=== PATIENT | male | born 1930 | race Caucasian/White ===

== ENCOUNTER 2017-12-05 09:32 | Emergency (ER) | payer MEDICARE, OTHER ==
[2017-12-05 09:54] VITALS: BP 131/60
--- NOTE | 2017-12-05 10:39 | UC ---
Head Injury HPI - HPI Summary HPI Summary: Patient went for a walk yesterday with his . States it was very hot outside and when he went inside he felt dizzy and passed out. He fell into his 's bureau sustaining a skin tear to his right forearm, right knee and struck the right side of his head. He does report LOC for less than 10 seconds. He woke up and had no dizziness or headache or nausea. Not UTD tetanus. - History Of Current Complaint Chief Complaint: UCDizziness Stated Complaint: FELL LAC ON ARM AND BEHIND EAR Time Seen by Provider: 12/05/17 09:45 Hx Obtained From: Patient, Family/Tile Roofer - ARIADNE HOFFMAN Onset/Duration: Sudden Onset, Lasting Hours, Still Present Severity Currently: Mild Severity Initially: Mild Pain Intensity: 0 Pain Scale Used: 0-10 Numeric Aggravating Factor(s): Nothing Associated Signs And Symptoms: Positive: LOC Duration Unknown. Negative: Memory Loss, Seizure, Epistaxis, Dental Malocclusion, Neck Pain, Nausea, Vomiting - Allergies/Home Medications Allergies/Adverse Reactions: Allergies Allergy/AdvReac Type Severity Reaction Status Date / Time No Known Allergies Allergy Verified 12/05/17 09:54 Home Medications: Home Medications Enetacapene 1 tab PO TID 12/05/17 [History] Finasteride [Proscar] 1 tab PO DAILY 12/05/17 [History Confirmed 12/05/17] Mirabegron (NF) [Myrbetriq (NF)] 1 tab PO DAILY 12/05/17 [History Confirmed ] Multivit-Min/Iron/Folic Acid/K [Adults Multivitamin Caplet] 1 tab PO DAILY 12/05 [History Confirmed 12/05/17] Tamsulosin CAP* [Flomax CAP*] 1 tab PO DAILY 12/05/17 [History Confirmed ] PMH/Surg Hx/FS Hx/Imm Hx Cardiovascular History: Atrial Fibrillation Other GI/ History: BPH Other Neurological History: PARKINSONS DISEASE Cancer History: Prostate Cancer - Surgical History Surgical History: Yes Surgery Procedure, Year, and Place: BILAT KNEE REPLACEMENT , appendectomy, hernia repairs, cataract removal - Family History Known Family History: Positive: Unknown - Social History Alcohol Use: None Substance Use Type: None Smoking Status (MU): Former Smoker Type: Cigarettes Amount Used/How Often: one pack per week Length of Time of Smoking/Using Tobacco: 10 years Have You Smoked in the Last Year: No When Did the Patient Quit Smoking/Using Tobacco: 67 years ago - Immunization History Most Recent Influenza Vaccination: 02/2015 Most Recent Tetanus Shot: 2013 Most Recent Pneumonia Vaccination: 2013 Review of Systems Constitutional: Negative Skin: Other - ABRASIONS Respiratory: Negative Cardiovascular: Negative Gastrointestinal: Negative Musculoskeletal: Negative Neurological: Negative All Other Systems Reviewed And Are Negative: Yes Physical Exam Triage Information Reviewed: Yes Appearance: Well-Appearing, No Pain Distress, Well-Nourished Vital Signs: Initial Vital Signs Temp 99.4 F 12/05/17 09:50 Pulse 75 12/05/17 09:50 Resp 17 12/05/17 09:50 BP 131/60 12/05/17 09:50 Pulse Ox 97 12/05/17 09:50 Vital Signs Reviewed: Yes Eyes: Positive: Conjunctiva Clear ENT: Positive: Hearing grossly normal, Pharynx normal, TMs normal, Other - NO RACCOON EYES, NO BATTLES SIGN, NO FLUID FROM NOSE OR EARS Neck: Positive: Supple, Nontender Respiratory Exam: Normal Cardiovascular Exam: Normal Abdomen Description: Positive: Nontender, Soft Musculoskeletal: Positive: No Edema Neurological: Positive: Alert, Other: - CN II-XII GROSSLY INTACT BILATERALLY. 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 MOTOR SKILLS EVAL LIMITED DUE TO PT DEBILITY AND PARKINSONS Psychological: Positive: Age Appropriate Behavior Skin: Positive: Other - SKIN TEAR 2.5CM X 5.5CM RIGHT FOREARM. 1 CM ABRASION BEHIND RIGHT EAR. 2CM ABRASION RIGHT MEDIAL KNEE. Diagnostics - Radiology CT HEAD Xray Interpretation: No Acute Changes Radiology Interpretation Completed By: Radiologist - EKG Cardiac Rate: NL Cardiac Rhythm: Sinus: Normal - RBBB Ectopy: None ST Segment: Normal Head Injury Course/Dx - Differential Dx/Diagnosis Provider Diagnoses: 1. HEAD INJURY. 2. ABRASIONS Discharge - Sign-Out/Discharge Documenting (check all that apply): Discharge/Admit/Transfer - Discharge Plan Condition: Stable Disposition: HOME Patient Education Materials: Head Injury (ED), Skin Avulsion (ED), Abrasion (ED ), Skin Tear (ED) Referrals: Wai Elizabeth MD [Medical Doctor] - 1 Week Additional Instructions: CT HEAD TODAY UNREMARKABLE. GO TO THE ER WITHOUT FAIL IF YOU DEVELOP UNEQUAL PUPILS, VISUAL DISTURBANCE, GAIT INSTABILITY, SPEECH DIFFICULTY, NAUSEA/VOMITING, WORSENING HEADACHE, DIZZINESS, CONFUSION, WEAKNESS OR ANY OTHER CONCERNING SYMPTOMS. APPLY THIN LAYER ANTIBIOTIC OINTMENT ON SKIN TEAR ON RIGHT FOREARM THEN COVER WITH NON-STICK BANDAGE. CHANGE BANDAGE DAILY AND NEEDED IF IT BECOMES SOILED OR WET. SEEK FOLLOW-UP IF YOU DEVELOP SPREADING REDNESS OF THE SKIN, PURULENT DRAINAGE, FEVER, INCREASED PAIN OR ANY OTHER CONCERNING SYMPTOMS. TETANUS IMMUNIZATION GIVEN (TDAP): You have been given an immunization against tetanus. Please record this in your records. In general, a booster is needed only once every 10 years. The tetanus shot protects against tetanus or "lockjaw," which is a complication of certain wound infections (the tetanus shot cannot protect against the actual infection). The immunization site may become warm and red due to local reaction. If this occurs, apply warm compresses and take aspirin or ibuprofen to reduce inflammation and discomfort. Return for evaluation if the reaction becomes severe. - Billing Disposition and Condition Condition: STABLE Disposition: Home
[2017-12-05] MEDS ORDERED: Tetan/Diph/Pertus SYR(Tdap)* 0.5 ML SYR(BOOSTRIX) use SYR IM ONE (11:06)
--- NOTE | 2017-12-05 11:19 | RAD ---
HISTORY: head injury w/ LOC COMPARISONS: February 27, 2016 TECHNIQUE: Multiple contiguous axial CT scans were obtained of the head without intravenous contrast. FINDINGS: HEMORRHAGE/INFARCT: There is no hemorrhage or acute infarct. MASSES/SHIFT: There is no mass or shift. EXTRA-AXIAL SPACES: There are no extra-axial fluid collections. SULCI AND VENTRICLES: The sulci and ventricles are normal in size and position for the patient's stated age. CEREBRUM: There is hypoattenuation of the periventricular and subcortical white matter. BRAINSTEM: There are no focal parenchymal abnormalities. CEREBELLUM: There are no focal parenchymal abnormalities. VESSELS: There is calcification of the cavernous segments of the internal carotid arteries bilaterally. PARANASAL SINUSES: The paranasal sinuses are clear. ORBITS: The orbits are unremarkable. BONES AND SOFT TISSUE: No bone or soft tissue abnormalities are noted. OTHER: None IMPRESSION: NO ACUTE INTRACRANIAL PATHOLOGY. CHRONIC SMALL VESSEL ISCHEMIC CHANGE
== END 2017-12-05 12:07 | disposition home or self-care (01) ==
LOC: UCEAST 09:32
DX: S09.90XA Unspecified injury of head, initial encounter (principal); W08.XXXA Fall from other furniture, initial encounter; Y92.019 Unspecified place in single-family (private) house as the place of occurrence of the external cause; S80.211A Abrasion, right knee, initial encounter; S00.411A Abrasion of right ear, initial encounter; I48.91 Unspecified atrial fibrillation; N40.0 Benign prostatic hyperplasia without lower urinary tract symptoms; G20 Parkinson's disease; C61 Malignant neoplasm of prostate; Z87.891 Personal history of nicotine dependence
CPT/HCPCS: 70450; 90715; 93005; 99212; G0463

== ENCOUNTER 2018-08-07 11:26 | Emergency (ER) | payer MEDICARE, OTHER ==
--- OUTSIDE RECORDS SUMMARY | 2018-08-07 11:33 | XMS REPORT | Continuity of Care Document ---
:1928 External Reference #:[id number] Author Name Genia mota Care Team Providers Name Role Phone Wai Elizabeth MD Primary Care Physician Unavailable Payers Type Date Identification Numbers Payment Provider Subscriber Effective: 1993 Policy Number: [id number] Medicare Curtis Hall PayID: [id number] [address] [place] [address] Effective: 1993 Policy Number: [id number] [facility] Curtis Hall PayID: [id number] [address] [place] [address] Advance Directives Description No Information Available Problems Date Description Provider Status Onset: 03/14/2012 Rheumatoid arthritis Jerome Palencia M.D. Active Onset: 03/14/2012 Medications [facility] (Current) Use Jerome Palencia M.D. 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 Active Onset: 03/18/2015 Full thickness rotator cuff tear Adrian Bajwa M.D. Active Onset: 06/09/2015 Taking medication CONCHITA Retana Active Onset: 07/09/2017 Arthroplasty of knee Richard Garcia M.D. 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 Family History Description No Information Available Social History Type Date Description Comments Sex Unknown Hand Dominance Right-handed Tobacco Use Start: Unknown End: Former Cigarette Smoker Unknown Smoking Status Reviewed: 07/17/18 Former Cigarette Smoker ETOH Use Drinks 3 Alcoholic Beverages Per Week Tobacco Use Start: Unknown End: Patient is a former smoker Quit 1965 Unknown Recreational Drug Use Denies Drug Use Allergies, Adverse Reactions, Alerts Description No Known Drug Allergies Medications Medication Date Status Form Strength Qnty SIG Indications Ordering Provider Gait/Transfer 04/24 Active Misc 1 for use G2 Loy Fong with walks Jagdeep Connelly transfer Methotrexate 11/26 Active Tablets 2.5mg 90tab take 6 M06.9 s capsules/lupe Mcmullen M.D. ablets by mouth once weekly for rheumatoid arthritis Folic Acid 11/26 Active Tablets 1mg 90tab take one M06.9 s capsule/selene Mcmullen M.D. blet daily by mouth for rheumatoid arthritis Sinemet 11/18 Active Tablets 25-100mg 112ta 2 tabs by Juan Miguel bs mouth four Fuad Churchill times a day, at 8 in the morning, 12 in the morning, 4 at night, & 8 at night Amoxicillin 10/28 Active Capsules 500mg 4caps 4 tablets Dirk Jose 1 hour M.D. before dental work Flomax Active Capsules 0.4mg 30cap 1 po qd Unknown / s Ibuprofen Active Capsules 200mg as needed Unknown Myrbetriq Active Tablets 25mg 2 by mouth ER 24HR every day Oxybutynin 07/18 Hx Tablets 10mg 90tab 1 po qhs Loy Fong Chloride ER 24HR s Kalen ConnellyDSherif 10/24 Comtan 04/26 Hx Tablets 200mg 270ta 1 by mouth G2 Loy Fong bs three Maricel, - times a M.D. 08/15 day at 7 11, and 3 Voltaren 09/07 Hx Gel 1% 1tube apply to M75.121 Zsofi s affected [facility] - area twice 10/24 a day, needed Naproxen 06/14 Hx Tablets 250mg 60tab 1 tablet M75.121 s by mouth Fuad Palencia - twice a 11/23 day needed pain, with foods (not taking, ineffectiv e) Lidocaine 06/14 Hx Cream 4% 30gm apply thin M75.121 film to Fuad Palencia - the skin 3 09/07 daily as needed (not taking, ineffectiv e) Naproxen Sodium 06/09 Hx Tablets 220mg 60tab 1 tab by M75.121 Zsofi s mouth CONCHITA Quiñones - twice a Voltaren 06/09 Hx Gel 1% 100gm apply to M75.121 affected CONCHITA Quiñones - area twice 06/14 a day, needed Percocet 01/13 Hx Tablets 5-325mg 40tab 1-2 by 715.11 Adrian Bajwa s mouth LindsayDSherif - every 4 to 03/16 6 hours needed pain Carbidopa-Levodo 08/21 Hx Tablets 25-100mg 30tab take 1 by Loy de la torre ER s mouth at Maricel, - bedtime M.D. 12/16 Fludrocortisone 02/11 Hx Tablets 0.1mg 30tab 1 by mouth Loy Mcdaniel /2013 s every day Maricel - M.DSherif 02/11 Fludrocortisone 02/11 Hx Tablets 0.1mg 90tab 1 by mouth Loy Mcdaniel /2013 s every day Maricel - M.DSherif 02/11 Fludrocortisone 02/11 Hx Tablets 0.1mg 180ta 2 tabs by Gladis Mcdaniel bs mouth Surinder, COSMETIC MANAGER - daily 06/25 Methotrexate 10/01 Hx Tablets 2.5mg 6tabs 6 tbs by M05.79 Zsofi mouth CONCHITA Quiñones - every week 04/03 Carbidopa/Levodo 01/07 Hx Tablets 25-100mg 270ta 1 po tid Other britt /2012 bs Ordering - Provider 01/07 Methotrexate 01/07 Hx Tablets 2.5mg 60tab 5 tbs po ofi s every week CONCHITA Quiñones - 10/01 Detrol LA 09/24 Hx Caps ER 2mg 30cap 1 po qd 24HR s Fuad Palencia - 09/24 Prednisone 05/12 Hx Tablets 5mg 70tab 4 qd x 1 s week, 3 qd Fuad Palencia - x 1 week, 09/24 2 qd x week, 1 qd x 1 week Methotrexate 05/12 Hx Tablets 2.5mg 12tab take 3 s tablets Fuad Palencia - Per Week 01/07 Levodopa 04/25 Hx Powder unknown to pt Fuad Palencia - 04/23 Folic Acid 09/05 Hx Tablets 1mg 90tab take 1 Z79.899 Zsofi s tablet by CONCHITA Quiñones - mouth once 11/26 daily /2017 Sinemet Hx Tablets 25-100mg 720ta 2 tabs Loy S. /0000 bs four times Maricel, - a day M.DSherif 11/18 Simvastatin Hx Tablets 10mg 90tab 1/2 po qhs Unknown /0000 s - 04/25 Terazosin HCL Hx Capsules 1mg 270ca take one Unknown /0000 ps capsule by - mouth 09/24 morning and take two capsules by mouth at bedtime Finasteride Hx Tablets 5mg 90tab 1 tab po Unknown /0000 s daily - 02/05 Multi Vitamin Hx Tablets 30tab 1 po qd Unknown /0000 s - 06/25 Oxybutynin Hx Tablets 5mg 90tab 1/2 tid Unknown Chloride /0000 ER 24HR s - 09/24 Fish Oil Hx Capsules 1000mg 1 po qd Unknown /0000 DR - 02/23 Aspirin 00/00 Hx Tablets 325mg 100ta 1 po qd Unknown /0000 DR canales prn - 04/23 Tamsulosin HCL Hx Capsules 0.4mg 30.0c 1 po qd Unknown /0000 aps - 01/29 Aspirin Ec Hx Tablets 325mg 100ta 1 po qd Unknown /0000 DR canales - 10/25 Floranex Hx Packet Unknown /0000 - 04/02 Oxybutynin Hx Tablets 5mg take 1 Unknown Chloride ER /0000 ER 24HR tablet by - mouth once 07/18 Simvastatin Hx Tablets 10mg take 1/2 Unknown /0000 tablet by - mouth at 08/14 bedtime Multivitamin Hx Tablets 1 by mouth Unknown Adults /0000 every day - 02/05 Entacapone Hx Tablets 200mg 270ta 1 tab by Loy S. /0000 bs mouth Zarephath, - three M.D. 12/17 times day Minocycline HCL Hx Capsules 100mg take one M06.9 Unknown /0000 capsule by - mouth two 11/26 times day Entacapone Hx Tablets 200mg take 1 Unknown /0000 tablet by - mouth 02/05 times a day(vito wray not taking) Medications Administered in Office Medication Date Status Form Strength Qnty SIG Indications Ordering Provider Depomedrol Administered Injection Dirk Jose, 40MG 018 M.D. Depomedrol Administered Injection Dirk Jose, 40MG 018 M.D. Depomedrol Administered Injection Dirk Jose, 40MG 016 M.D. Depomedrol Administered Injection Adrian 80MG 015 Svetlana Bajwa.Jackie Depomedrol Administered Injection Adrian 80MG 015 Fuad Bajwa Depomedrol Administered Injection Dirk Jose, 80MG 015 M.D. Depomedrol Administered Injection Jackie 80MG 011 GENNA Cano Depomedrol Administered Injection Dirk Jose, 40MG 010 M.D. Immunizations Description No Information Available Vital Signs Date Vital Result Comment 07/17/2018 1:48pm Height 70 inches 5'10" Weight 148.00 lb Heart Rate 78 /min BP Systolic 102 mmHg BP Diastolic 68 mmHg BMI (Body Mass Index) 21.2 kg/m2 04/24/2018 3:23pm Height 70 inches 5'10" Weight 148.00 lb Heart Rate 72 /min BP Systolic Sitting 104 mmHg BP Diastolic Sitting 64 mmHg Respiratory Rate 16 /min BMI (Body Mass Index) 21.2 kg/m2 02/06/2018 2:02pm Height 70 inches 5'10" Weight 143.00 lb Heart Rate 68 /min BP Systolic 100 mmHg Stand 100/62 BP Diastolic 62 mmHg Stand 100/62 Respiratory Rate 20 /min BMI (Body Mass Index) 20.5 kg/m2 01/08/2018 10:52am Height 70 inches 5'10" Weight 147.00 lb Heart Rate 62 /min BP Systolic 92 mmHg BP Diastolic 52 mmHg BP Systolic Standing 86 mmHg BP Diastolic Standing 48 mmHg BMI (Body Mass Index) 21.1 kg/m2 12/27/2017 3:50pm Height 70 inches 5'10" Heart Rate 68 /min BP Systolic Sitting 124 mmHg BP Diastolic Sitting 76 mmHg BP Systolic Standing 110 mmHg BP Diastolic Standing 64 mmHg Respiratory Rate 14 /min Pain Level 4 12/14/2017 8:39am Height 70 inches 5'10" Weight 145.00 lb Heart Rate 72 /min BP Systolic Sitting 122 mmHg BP Diastolic Sitting 72 mmHg Respiratory Rate 16 /min BMI (Body Mass Index) 20.8 kg/m2 11/26/2017 11:05am Weight 152.50 lb Heart Rate 80 /min BP Systolic Sitting 106 mmHg BP Diastolic Sitting 64 mmHg Respiratory Rate 14 /min Pain Level 8 10/17/2017 9:49am Heart Rate 64 /min BP Systolic 110 mmHg BP Diastolic 60 mmHg Respiratory Rate 16 /min Body Temperature 96.7 F Pain Level 8 intermittent 08/15/2017 4:01pm Height 70 inches 5'10" Weight 142.00 lb Heart Rate 74 /min BP Systolic Sitting 112 mmHg BP Diastolic Sitting 72 mmHg Respiratory Rate 17 /min BMI (Body Mass Index) 20.4 kg/m2 07/23/2017 9:37am Height 70 inches 5'10" Weight 145.00 lb Heart Rate 86 /min Respiratory Rate 16 /min Body Temperature 96.5 F Pain Level 8 BMI (Body Mass Index) 20.8 kg/m2 07/09/2017 1:45pm Height 70 inches 5'10" Weight 145.00 lb BP Systolic 112 mmHg BP Diastolic 70 mmHg Respiratory Rate 20 /min Body Temperature 97.5 F Pain Level 7 BMI (Body Mass Index) 20.8 kg/m2 04/04/2017 9:40am Height 70 inches 5'10" Weight 145.00 lb Heart Rate 68 /min BP Systolic 100 mmHg BP Diastolic 60 mmHg Respiratory Rate 14 /min BMI (Body Mass Index) 20.8 kg/m2 11/14/2016 4:48pm Height 70 inches 5'10" Weight 145.00 lb Heart Rate 66 /min BP Systolic Sitting 112 mmHg BP Diastolic Sitting 70 mmHg Respiratory Rate 17 /min BMI (Body Mass Index) 20.8 kg/m2 07/18/2016 8:50am Height 70 inches 5'10" Weight 148.00 lb Heart Rate 64 /min BP Systolic Sitting 110 mmHg BP Diastolic Sitting 70 mmHg Respiratory Rate 17 /min BMI (Body Mass Index) 21.2 kg/m2 05/11/2016 1:12pm Height 70 inches 5'10" Weight 155.00 lb Heart Rate 68 /min Respiratory Rate 16 /min Pain Level 8 BMI (Body Mass Index) 22.2 kg/m2 04/26/2016 2:34pm Height 70 inches 5'10" Weight 155.00 lb Heart Rate 68 /min BP Systolic Sitting 130 mmHg BP Diastolic Sitting 68 mmHg BMI (Body Mass Index) 22.2 kg/m2 03/29/2016 9:32am Height 70 inches 5'10" Weight 165.00 lb Pain Level 3 5 BMI (Body Mass Index) 23.7 kg/m2 02/02/2016 10:11am Height 70 inches 5'10" Weight 165.00 lb Heart Rate 60 /min Respiratory Rate 16 /min Body Temperature 97.8 F Pain Level 0 BMI (Body Mass Index) 23.7 kg/m2 01/18/2016 1:39pm Height 70 inches 5'10" Heart Rate 80 /min BP Systolic Sitting 100 mmHg BP Diastolic Sitting 66 mmHg Respiratory Rate 16 /min 10/27/2015 11:33am Height 70 inches 5'10" Weight 166.00 lb Heart Rate 72 /min BP Systolic Sitting 104 mmHg BP Diastolic Sitting 62 mmHg Respiratory Rate 18 /min BMI (Body Mass Index) 23.8 kg/m2 09/29/2015 9:37am Height 70 inches 5'10" Weight 170.00 lb Heart Rate 75 /min BP Systolic 103 mmHg BP Diastolic 62 mmHg Pain Level 7 BMI (Body Mass Index) 24.4 kg/m2 09/08/2015 11:09am Height 70 inches 5'10" Heart Rate 76 /min BP Systolic Sitting 112 mmHg BP Diastolic Sitting 74 mmHg Respiratory Rate 14 /min Pain Level 4 06/09/2015 12:42pm Height 70 inches 5'10" Weight 163.50 lb Heart Rate 72 /min BP Systolic Sitting 160 mmHg BP Diastolic Sitting 90 mmHg Respiratory Rate 14 /min Pain Level 9 BMI (Body Mass Index) 23.5 kg/m2 06/02/2015 10:37am Height 70 inches 5'10" Weight 163.00 lb Heart Rate 64 /min BP Systolic Sitting 110 mmHg BP Diastolic Sitting 68 mmHg Respiratory Rate 16 /min BMI (Body Mass Index) 23.4 kg/m2 03/18/2015 9:15am Height 70 inches 5'10" Weight 170.00 lb Pain Level 7 BMI (Body Mass Index) 24.4 kg/m2 03/17/2015 10:27am Height 70 inches 5'10" Weight 153.00 lb With shoes on- Heart Rate 68 /min BP Systolic Sitting 106 mmHg BP Diastolic Sitting 68 mmHg Respiratory Rate 16 /min BMI (Body Mass Index) 22.0 kg/m2 02/25/2015 10:32am Height 70 inches 5'10" Weight 170.00 lb Pain Level 8 BMI (Body Mass Index) 24.4 kg/m2 02/11/2015 8:33am Height 70 inches 5'10" Weight 170.00 lb Pain Level 9 BMI (Body Mass Index) 24.4 kg/m2 01/21/2015 8:30am Height 70 inches 5'10" Weight 170.00 lb Pain Level 9 BMI (Body Mass Index) 24.4 kg/m2 01/13/2015 12:54pm Height 70 inches 5'10" Weight 170.00 lb Pain Level 9 BMI (Body Mass Index) 24.4 kg/m2 12/28/2014 10:59am Height 70 inches 5'10" Weight 170.00 lb Heart Rate 63 /min BP Systolic 131 mmHg BP Diastolic 82 mmHg BMI (Body Mass Index) 24.4 kg/m2 12/22/2014 2:07pm Height 68 inches 5'8" Heart Rate 60 /min BP Systolic Sitting 108 mmHg BP Diastolic Sitting 64 mmHg Respiratory Rate 16 /min 11/25/2014 10:17am Height 68 inches 5'8" Heart Rate 64 /min BP Systolic Sitting 110 mmHg BP Diastolic Sitting 68 mmHg Respiratory Rate 16 /min 11/11/2014 8:31am Height 68 inches 5'8" Heart Rate 68 /min BP Systolic Sitting 124 mmHg BP Diastolic Sitting 72 mmHg Respiratory Rate 16 /min 08/21/2014 10:40am Heart Rate 64 /min BP Systolic Sitting 116 mmHg BP Diastolic Sitting 66 mmHg Respiratory Rate 16 /min 05/13/2014 8:42am BP Systolic 90 mmHg After standing 1 minut BP Diastolic 62 mmHg After standing 1 minut BP Systolic Sitting 106 mmHg BP Diastolic Sitting 60 mmHg BP Systolic Standing 96 mmHg BP Diastolic Standing 60 mmHg BP Systolic Lying Down 110 mmHg BP Diastolic Lying Down 62 mmHg 04/02/2014 9:34am Height 68 inches 5'8" Weight 175.00 lb Heart Rate 84 /min BP Systolic Sitting 114 mmHg BP Diastolic Sitting 68 mmHg Pain Level 0 BMI (Body Mass Index) 26.6 kg/m2 03/17/2014 9:34am Height 68 inches 5'8" Weight 172.00 lb Heart Rate 72 /min BP Systolic Sitting 128 mmHg BP Diastolic Sitting 70 mmHg Respiratory Rate 16 /min BMI (Body Mass Index) 26.1 kg/m2 02/11/2014 8:37am Height 68 inches 5'8" Weight 170.00 lb Heart Rate 72 /min BP Systolic Sitting 100 mmHg BP Diastolic Sitting 60 mmHg Respiratory Rate 20 /min BMI (Body Mass Index) 25.8 kg/m2 12/24/2013 2:07pm Height 68 inches 5'8" Weight 171.25 lb Heart Rate 77 /min BP Systolic Sitting 116 mmHg BP Diastolic Sitting 70 mmHg Pain Level 5 BMI (Body Mass Index) 26.0 kg/m2 10/01/2013 1:51pm Height 68 inches 5'8" Weight 178.75 lb Heart Rate 74 /min BP Systolic Sitting 102 mmHg BP Diastolic Sitting 78 mmHg BMI (Body Mass Index) 27.2 kg/m2 07/25/2013 10:54am Heart Rate 70 /min BP Systolic Sitting 120 mmHg BP Diastolic Sitting 80 mmHg Respiratory Rate 16 /min 06/24/2013 9:30am Height 67 inches 5'7" Weight 177.75 lb Heart Rate 78 /min BP Systolic Sitting 110 mmHg BP Diastolic Sitting 74 mmHg BMI (Body Mass Index) 27.8 kg/m2 04/01/2013 9:31am Weight 174.00 lb Heart Rate 72 /min BP Systolic Sitting 110 mmHg BP Diastolic Sitting 60 mmHg 01/29/2013 2:43pm Heart Rate 76 /min BP Systolic 100 mmHg BP Diastolic 64 mmHg Respiratory Rate 12 /min 01/07/2013 9:01am Height 68 inches 5'8" Weight 162.00 lb Heart Rate 77 /min BP Systolic Sitting 124 mmHg BP Diastolic Sitting 74 mmHg BMI (Body Mass Index) 24.6 kg/m2 10/25/2012 2:44pm Height 68 inches 5'8" Weight 165.00 lb Heart Rate 71 /min BP Systolic Sitting 128 mmHg BP Diastolic Sitting 62 mmHg BMI (Body Mass Index) 25.1 kg/m2 06/13/2012 8:41am Height 68 inches 5'8" Heart Rate 72 /min BP Systolic Sitting 118 mmHg BP Diastolic Sitting 62 mmHg 04/23/2012 2:36pm Weight 170.00 lb Heart Rate 60 /min BP Systolic 136 mmHg BP Diastolic 78 mmHg Respiratory Rate 14 /min 03/14/2012 8:18am Height 71 inches 5'11" Weight 165.00 lb Heart Rate 68 /min BP Systolic Sitting 121 mmHg BP Diastolic Sitting 66 mmHg BMI (Body Mass Index) 23.0 kg/m2 12/11/2011 8:53am Height 71 inches 5'11" Weight 180.00 lb Heart Rate 70 /min BP Systolic Sitting 121 mmHg BP Diastolic Sitting 68 mmHg BMI (Body Mass Index) 25.1 kg/m2 09/25/2011 9:06am Height 71 inches 5'11" Weight 181.00 lb Heart Rate 76 /min BP Systolic Sitting 118 mmHg BP Diastolic Sitting 69 mmHg BMI (Body Mass Index) 25.2 kg/m2 05/12/2011 10:12am Height 71 inches 5'11" Weight 182.00 lb Heart Rate 68 /min BP Systolic Sitting 110 mmHg BP Diastolic Sitting 70 mmHg BMI (Body Mass Index) 25.4 kg/m2 04/25/2011 9:19am Height 71 inches 5'11" Weight 181.00 lb Heart Rate 66 /min BP Systolic Sitting 110 mmHg BP Diastolic Sitting 70 mmHg BMI (Body Mass Index) 25.2 kg/m2 01/17/2011 4:05pm Height 71 inches 5'11" Weight 175.00 lb Heart Rate 72 /min BP Systolic 100 mmHg BP Diastolic 60 mmHg BMI (Body Mass Index) 24.4 kg/m2 Results Test Date Facility Test Result H/L Range Note Laboratory test 12/27/2017 [facility] C Reactive 12.99 mg/L High <8.[address] [place] [address] [phone] Erythrocyte Sed Rate 22 mm/Hr N 0-40 CBC Auto Diff 12/27/2017 [facility] White Blood 5.6 10^3/uL N 3.5-10.[address] [place] [address] [phone] Red Blood Count 4.12 10^6/uL N 4.00-5.40 Hemoglobin 13.5 g/dL Low 14.0-18.0 Hematocrit 40 % Low 42-52 Mean Corpuscular Volume 97 fL High 80-94 Mean Corpuscular Hemoglobin 33 pg High 27-31 Mean Corpuscular HGB Conc 34 g/dL N 31-36 Red Cell Distribution Width 14 % N 10.5-15 Platelet Count 224 10^3/uL N 150-450 Mean Platelet Volume 6.8 um3 Low 7.4-10.4 Abs Neutrophils 3.0 10^3/uL N 1.5-7.7 Abs Lymphocytes 2.0 10^3/uL N 1.0-4.8 Abs Monocytes 0.4 10^3/uL N 0-0.8 Abs Eosinophils 0.2 10^3/uL N 0-0.6 Abs Basophils 0 10^3/uL N 0-0.2 Abs Nucleated RBC 0 10^3/uL Granulocyte % 53.6 % N 38-83 Lymphocyte % 35.3 % N 25-47 Monocyte % 7.6 % High 0-7 Eosinophil % 2.9 % N 0-6 Basophil % 0.6 % N 0-2 Nucleated Red Blood Cells % 0 Comp Metabolic Panel 12/27/2017 [facility] Sodium 140 mmol/L N 135-[address] [place] [address] [phone] Potassium 4.3 mmol/L N 3.5-5.0 Chloride 107 mmol/L N 101-111 Co2 Carbon Dioxide 26 mmol/L N 22-32 Anion Gap 7 mmol/L N 2-11 Glucose 102 mg/dL High 70-100 Blood Urea Nitrogen 19 mg/dL N 6-24 Creatinine 0.96 mg/dL N 0.67-1.17 BUN/Creatinine Ratio 19.8 N 8-20 Calcium 9.1 mg/dL N 8.6-10.3 Total Protein 6.3 g/dL Low 6.4-8.9 Albumin 3.6 g/dL N 3.2-5.2 Globulin 2.7 g/dL N 2-4 Albumin/Globulin Ratio 1.3 N 1-3 Total Bilirubin 0.50 mg/dL N 0.2-1.0 Alkaline Phosphatase 69 U/L N 34-104 Alt < 3 U/L Low 7-52 Ast 12 U/L Low 13-39 Egfr Non- 73.8 >60 Egfr 89.2 >60 1 Connective Tissue 11/26/2017 [facility] Anti-Nuclear Antibody 0.5 U [address] [place] [address] [phone] Cyclic Citrullinated Peptide >250.0 U Abnormal 3 Interpretation See Comment 4 Laboratory test 11/26/2017 [facility] Rheumatoid 606 IU/mL High <15 [address] [place] [address] [phone] Erythrocyte Sed Rate 17 mm/Hr N 0-40 6 C Reactive Protein 15.70 mg/L High < 5.00 7 Vitamin D Total 25(Oh) 23.7 ng/mL N 20-50 8 CBC Auto Diff 11/26/2017 [facility] White Blood 7.2 10^3/uL N 3.5-10.[address] [place] [address] [phone] Red Blood Count 4.59 10^6/uL N 4.0-5.4 Hemoglobin 15.0 g/dL N 14.0-18.0 Hematocrit 44 % N 42-52 Mean Corpuscular Volume 96 fL High 80-94 Mean Corpuscular Hemoglobin 33 pg High 27-31 Mean Corpuscular HGB Conc 34 g/dL N 31-36 Red Cell Distribution Width 13 % N 10.5-15 Platelet Count 215 10^3/uL N 150-450 Mean Platelet Volume 7.4 um3 N 7.4-10.4 Abs Neutrophils 4.9 10^3/uL N 1.5-7.7 Abs Lymphocytes 1.7 10^3/uL N 1.0-4.8 Abs Monocytes 0.5 10^3/uL N 0-0.8 Abs Eosinophils 0 10^3/uL N 0-0.6 Abs Basophils 0 10^3/uL N 0-0.2 Abs Nucleated RBC 0 10^3/uL Granulocyte % 68.5 % N 38-83 Lymphocyte % 23.8 % Low 25-47 Monocyte % 6.8 % N 0-7 Eosinophil % 0.6 % N 0-6 Basophil % 0.3 % N 0-2 Nucleated Red Blood Cells % 0 Comp Metabolic Panel 11/26/2017 [facility] Sodium 138 mmol/L Low 139-145 [address] [place] [address] [phone] Potassium 4.7 mmol/L N 3.5-5.0 Chloride 104 mmol/L N 101-111 Co2 Carbon Dioxide 27 mmol/L N 22-32 Anion Gap 7 mmol/L N 2-11 Glucose 87 mg/dL N 70-100 Blood Urea Nitrogen 22 mg/dL N 6-24 Creatinine 0.96 mg/dL N 0.67-1.17 BUN/Creatinine Ratio 22.9 High 8-20 Calcium 9.0 mg/dL N 8.6-10.3 Total Protein 6.4 g/dL N 6.4-8.9 Albumin 3.6 g/dL N 3.2-5.2 Globulin 2.8 g/dL N 2-4 Albumin/Globulin Ratio 1.3 N 1-3 Total Bilirubin 0.70 mg/dL N 0.2-1.0 Alkaline Phosphatase 82 U/L N 34-104 Alt < 3 U/L Low 7-52 Ast 15 U/L N 13-39 Egfr Non- 73.8 >60 Egfr 94.8 >60 9 Urinalysis Profile 04/13/2016 [facility] Urine Color Yellow N [address] [place] [address] [phone] Urine Appearance Clear N Urine Specific [place] 1.018 N 1.010-1.030 Urine pH 5.0 N 5-9 Urine Urobilinogen Negative N Negative Urine Ketones Trace Abnormal Negative Urine Protein Negative N Negative Urine Leukocytes Negative N Negative Urine Blood Negative N Negative Urine Nitrite Negative N Negative Urine Bilirubin Negative N Negative Urine Glucose Negative N Negative Comp Metabolic Panel 04/13/2016 [facility] Sodium 138 mmol/L N 133-145 [address] [place] [address] [phone] Potassium 4.8 mmol/L N 3.5-5.0 Chloride 105 mmol/L N 101-111 Co2 Carbon Dioxide 26 mmol/L N 22-32 Anion Gap 7 mmol/L N 2-11 Glucose 97 mg/dL N 70-100 Blood Urea Nitrogen 24 mg/dL N 6-24 Creatinine 0.92 mg/dL N 0.67-1.17 BUN/Creatinine Ratio 26.1 High 8-20 Calcium 9.4 mg/dL N 8.6-10.3 Total Protein 6.8 g/dL N 6.4-8.9 Albumin 4.0 g/dL N 3.2-5.2 Globulin 2.8 g/dL N 2-4 Albumin/Globulin Ratio 1.4 N 1-3 Total Bilirubin 0.60 mg/dL N 0.2-1.0 Alkaline Phosphatase 73 U/L N 34-104 Alt 3 U/L Low 7-52 Ast 14 U/L N 13-39 Egfr Non- 77.8 N >60 Egfr 100.1 N >60 10 CBC Auto Diff 04/13/2016 [facility] White Blood 6.2 10^3/uL N 3.5-10.[address] [place] [address] [phone] Red Blood Count 4.55 10^6/uL N 4.0-5.4 Hemoglobin 14.2 g/dL N 14.0-18.0 Hematocrit 43 % N 42-52 Mean Corpuscular Volume 94 fL N 80-94 Mean Corpuscular Hemoglobin 31 pg N 27-31 Mean Corpuscular HGB Conc 33 g/dL N 31-36 Red Cell Distribution Width 15 % N 10.5-15 Platelet Count 206 10^3/uL N 150-450 Mean Platelet Volume 8 um3 N 7.4-10.4 Abs Neutrophils 3.7 10^3/uL N 1.5-7.7 Abs Lymphocytes 1.9 10^3/uL N 1.0-4.8 Abs Monocytes 0.5 10^3/uL N 0-0.8 Abs Eosinophils 0.1 10^3/uL N 0-0.6 Abs Basophils 0.1 10^3/uL N 0-0.2 Abs Nucleated RBC 0 10^3/uL N Granulocyte % 59.5 % N 38-83 Lymphocyte % 30.1 % N 25-47 Monocyte % 7.5 % N 1-9 Eosinophil % 1.8 % N 0-6 Basophil % 1.1 % N 0-2 Nucleated Red Blood Cells % 0 N Urinalysis Profile 11/26/2015 [facility] Urine Color Yellow N [address] [place] [address] [phone] Urine Appearance Clear N Urine Specific [place] 1.024 N 1.010-1.030 Urine pH 5.0 N 5-9 Urine Urobilinogen Negative N Negative Urine Ketones Trace Abnormal Negative Urine Protein Negative N Negative Urine Leukocytes Negative N Negative Urine Blood 1+ Abnormal Negative * * Abnormal Negative 11 Urine Nitrite Negative N Negative Urine Bilirubin Negative N Negative Urine Glucose Negative N Negative Urine White Blood Cell Trace(0-5/hpf) N Absent Urine Red Blood Cell 3+(>10/hpf) Abnormal Absent Urine Bacteria Absent N Absent CBC Auto Diff 09/06/2015 [facility] White Blood 6.8 10^3/uL N 3.5-10.[address] [place] [address] [phone] Red Blood Count 4.19 10^6/uL N 4.0-5.4 Hemoglobin 14.3 g/dL N 14.0-18.0 Hematocrit 43 % N 42-52 Mean Corpuscular Volume 102 fL High 80-94 Mean Corpuscular Hemoglobin 34 pg High 27-31 Mean Corpuscular HGB Conc 34 g/dL N 31-36 Red Cell Distribution Width 15 % N 10.5-15 Platelet Count 193 10^3/uL N 150-450 Mean Platelet Volume 8 um3 N 7.4-10.4 Abs Neutrophils 4.5 10^3/uL N 1.5-7.7 Abs Lymphocytes 1.8 10^3/uL N 1.0-4.8 Abs Monocytes 0.4 10^3/uL N 0-0.8 Abs Eosinophils 0.1 10^3/uL N 0-0.6 Abs Basophils 0 10^3/uL N 0-0.2 Abs Nucleated RBC 0 10^3/uL N Granulocyte % 66.0 % N 38-83 Lymphocyte % 25.7 % N 25-47 Monocyte % 6.5 % N 1-9 Eosinophil % 1.2 % N 0-6 Basophil % 0.6 % N 0-2 Nucleated Red Blood Cells % 0 N Laboratory test 09/06/2015 [facility] C Reactive 1.66 mg/L N < 5.00 [address] [place] [address] [phone] Erythrocyte Sed Rate 11 mm/Hr N 0-40 13 Comp Metabolic Panel 09/06/2015 [facility] Sodium 137 mmol/L N 133-[address] [place] [address] [phone] Potassium 4.9 mmol/L N 3.5-5.0 Chloride 102 mmol/L N 101-111 Co2 Carbon Dioxide 29 mmol/L N 22-32 Anion Gap 6 mmol/L N 2-11 Glucose 88 mg/dL N 70-100 Blood Urea Nitrogen 22 mg/dL N 6-24 Creatinine 1.15 mg/dL N 0.67-1.17 BUN/Creatinine Ratio 19.1 N 8-20 Calcium 9.4 mg/dL N 8.6-10.3 Total Protein 6.5 g/dL N 6.4-8.9 Albumin 4.1 g/dL N 3.2-5.2 Globulin 2.4 g/dL N 2-4 Albumin/Globulin Ratio 1.7 N 1-3 Total Bilirubin 0.80 mg/dL N 0.2-1.0 Alkaline Phosphatase 71 U/L N 34-104 Alt 5 U/L Low 7-52 Ast 19 U/L N 13-39 Egfr Non- 60.3 N >60 Egfr 77.5 N >60 14 CBC Auto Diff 05/26/2015 [facility] White Blood 7.2 10^3/uL N 4.8-10.[address] [place] [address] [phone] Red Blood Count 3.97 10^6/uL Low 4.0-5.4 Hemoglobin 13.8 g/dL Low 14.0-18.0 Hematocrit 42 % N 42-52 Mean Corpuscular Volume 105 fL High 80-94 Mean Corpuscular Hemoglobin 35 pg High 27-31 Mean Corpuscular HGB Conc 33 g/dL N 31-36 Red Cell Distribution Width 14 % N 10.5-15 Platelet Count 210 10^3/uL N 150-450 Mean Platelet Volume 8 um3 N 7.4-10.4 Abs Neutrophils 5.4 10^3/uL N 1.5-7.7 Abs Lymphocytes 1.2 10^3/uL N 1.0-4.8 Abs Monocytes 0.5 10^3/uL N 0-0.8 Abs Eosinophils 0.1 10^3/uL N 0-0.6 Abs Basophils 0 10^3/uL N 0-0.2 Abs Nucleated RBC 0 10^3/uL N Granulocyte % 74.6 % N 38-83 Lymphocyte % 16.7 % Low 25-47 Monocyte % 6.7 % N 1-9 Eosinophil % 1.5 % N 0-6 Basophil % 0.5 % N 0-2 Nucleated Red Blood Cells % 0 N Laboratory test 05/26/2015 [facility] C Reactive 3.23 mg/L N < 5.00 [address] [place] [address] [phone] Erythrocyte Sed Rate 17 mm/Hr N 0-40 17 Comp Metabolic Panel 05/26/2015 [facility] Sodium 138 mmol/L N 133-[address] [place] [address] [phone] Potassium 5.4 mmol/L High 3.5-5.0 Chloride 103 mmol/L N 101-111 Co2 Carbon Dioxide 31 mmol/L N 22-32 Anion Gap 4 mmol/L N 2-11 Glucose 111 mg/dL High 70-100 Blood Urea Nitrogen 23 mg/dL N 6-24 Creatinine 1.12 mg/dL N 0.67-1.17 BUN/Creatinine Ratio 20.5 High 8-20 Calcium 9.5 mg/dL N 8.6-10.3 Total Protein 6.5 g/dL N 6.4-8.9 Albumin 4.0 g/dL N 3.2-5.2 Globulin 2.5 g/dL N 2-4 Albumin/Globulin Ratio 1.6 N 1-3 Total Bilirubin 0.60 mg/dL N 0.2-1.0 Alkaline Phosphatase 61 U/L N 34-104 Alt < 3 U/L Low 7-52 Ast 17 U/L N 13-39 Egfr Non- 62.2 N >60 Egfr 79.9 N >60 18 CBC Auto Diff 02/11/2014 White Blood Count 6.2 10^3/uL N 4.8-10.8 Red Blood Count 4.07 10^6/uL N 4.0-5.4 Hemoglobin 14.1 g/dL N 14.0-18.0 Hematocrit 42 % N 42-52 Mean Corpuscular Volume 103 fL High 80-94 Mean Corpuscular Hemoglobin 35 pg High 27-31 Mean Corpuscular HGB Conc 34 g/dL N 31-36 Red Cell Distribution Width 14 % N 10.5-15 Platelet Count 176 10^3/uL N 150-450 Mean Platelet Volume 8 um3 N 7.4-10.4 Abs Neutrophils 4.2 10^3/uL N 1.5-7.7 Abs Lymphocytes 1.3 10^3/uL N 1.0-4.8 Abs Monocytes 0.4 10^3/uL N 0-0.8 Abs Eosinophils 0.2 10^3/uL N 0-0.6 Abs Basophils 0 10^3/uL N 0-0.2 Abs Nucleated RBC 0.01 10^3/uL N Granulocyte % 68.0 % N 38-83 Lymphocyte % 21.6 % Low 25-47 Monocyte % 7.1 % N 1-9 Eosinophil % 2.8 % N 0-6 Basophil % 0.5 % N 0-2 Nucleated Red Blood Cells % 0.1 N Comp Metabolic Panel 02/11/2014 Sodium 139 mmol/L N 133-145 Potassium 4.5 mmol/L N 3.7-5.6 Chloride 108 mmol/L N 101-111 Co2 Carbon Dioxide 28 mmol/L N 22-32 Anion Gap 3 mmol/L N 2-11 Glucose 99 mg/dL N 70-100 Blood Urea Nitrogen 15 mg/dL N 6-24 Creatinine 0.99 mg/dL N 0.67-1.17 BUN/Creatinine Ratio 15.2 N 8-20 Calcium 9.3 mg/dL N 8.6-10.3 Total Protein 6.3 g/dL Low 6.4-8.9 Albumin 3.9 g/dL N 3.2-5.2 Globulin 2.4 g/dL N 2-4 Albumin/Globulin Ratio 1.6 N 1-3 Total Bilirubin 0.70 mg/dL N 0.2-1.0 Alkaline Phosphatase 62 U/L N 34-104 Alt 4 U/L Low 7-52 Ast 17 U/L N 13-39 Egfr Non- 71.8 N >60 Egfr 92.4 N >60 19 Laboratory test finding 02/11/2014 TSH (Thyroid Stimulating 1.80 IU/mL N 0.34-5.60 Horm) Vitamin B12 396 pg/mL N 180-914 20 Comp Metabolic Panel 12/24/2013 [facility] Sodium 141 mmol/L N 133-[address] [place] [address] [phone] Potassium 4.3 mmol/L N 3.7-5.6 Chloride 106 mmol/L N 101-111 Co2 Carbon Dioxide 30 mmol/L N 22-32 Anion Gap 5 mmol/L N 2-11 Glucose 92 mg/dL N 70-100 Blood Urea Nitrogen 20 mg/dL N 6-24 Creatinine 1.11 mg/dL N 0.67-1.17 BUN/Creatinine Ratio 18.0 N 8-20 Calcium 9.3 mg/dL N 8.6-10.3 Total Protein 6.8 g/dL N 6.4-8.9 Albumin 4.2 g/dL N 3.2-5.2 Globulin 2.6 g/dL N 2-4 Albumin/Globulin Ratio 1.6 N 1-3 Total Bilirubin 0.70 mg/dL N 0.2-1.0 Alkaline Phosphatase 67 U/L N 34-104 Alt 8 U/L N 7-52 Ast 16 U/L N 13-39 Egfr Non- 63.0 N >60 Egfr 81.0 N >60 21 Laboratory test 12/24/2013 [facility] C Reactive 3.26 mg/L N < 5.00 [address] [place] [address] [phone] CBC With Manual 12/24/2013 [facility] White Blood 6.7 N 4.8- 10.[address] Count 10^3/[place] [address] [phone] Red Blood Count 4.29 10^6/uL N 4.0-5.4 Hemoglobin 15.2 g/dL N 14.0-18.0 Hematocrit 44 % N 42-52 Mean Corpuscular Volume 102 fL High 80-94 23 Mean Corpuscular Hemoglobin 36 pg High 27-31 Mean Corpuscular HGB Conc 35 g/dL N 31-36 Red Cell Distribution Width 14 % N 10.5-15 Platelet Count 187 10^3/uL N 150-450 Mean Platelet Volume 7 um3 Low 7.4-10.4 Abs Neutrophils 3.9 10^3/uL N 1.5-7.7 Abs Lymphocytes 2.0 10^3/uL N 1.0-4.8 Abs Monocytes 0.5 10^3/uL N 0-0.8 Abs Eosinophils 0.2 10^3/uL N 0-0.6 Abs Basophils 0 10^3/uL N 0-0.2 Abs Nucleated RBC 0 10^3/uL N Neutrophil % 59 % N 38-83 Lymphocytes % 27 % N 25-47 Monocytes % 9 % N 0-13 Eosinophils % 4 % N 0-6 Basophil % 1 % N 0-2 Macrocytosis 1+ N Laboratory test 12/24/2013 [facility] Erythrocyte Sed 10 mm/Hr N 0-[address] [place] [address] [phone] Comp Metabolic 11/26/2013 [facility] Sodium 139 mmol/L N 133- [address] [place] [address] [phone] Potassium 4.5 mmol/L N 3.7-5.6 Chloride 106 mmol/L N 101-111 Co2 Carbon Dioxide 29 mmol/L N 22-32 Anion Gap 4 mmol/L N 2-11 Glucose 117 mg/dL High 70-100 Blood Urea Nitrogen 15 mg/dL N 6-24 Creatinine 1.08 mg/dL N 0.67-1.17 BUN/Creatinine Ratio 13.9 N 8-20 Calcium 9.5 mg/dL N 8.6-10.3 Total Protein 6.6 g/dL N 6.4-8.9 Albumin 4.1 g/dL N 3.2-5.2 Globulin 2.5 g/dL N 2-4 Albumin/Globulin Ratio 1.6 N 1-3 Total Bilirubin 0.90 mg/dL N 0.2-1.0 Alkaline Phosphatase 59 U/L N 34-104 Alt 10 U/L N 7-52 Ast 18 U/L N 13-39 Egfr Non- 65.0 N >60 Egfr 83.6 N >60 24 Laboratory test 11/26/2013 [facility] C Reactive 1.54 mg/L N < 5.00 [address] [place] [address] [phone] CBC With Manual 11/26/2013 [facility] White Blood 6.0 N 4.8- 10.[address] Count 10^3/[place] [address] [phone] Red Blood Count 4.21 10^6/uL N 4.0-5.4 Hemoglobin 14.8 g/dL N 14.0-18.0 Hematocrit 43 % N 42-52 Mean Corpuscular Volume 101 fL High 80-94 Mean Corpuscular Hemoglobin 35 pg High 27-31 Mean Corpuscular HGB Conc 35 g/dL N 31-36 Red Cell Distribution Width 14 % N 10.5-15 Platelet Count 185 10^3/uL N 150-450 Mean Platelet Volume 8 um3 N 7.4-10.4 Abs Neutrophils 3.9 10^3/uL N 1.5-7.7 Abs Lymphocytes 1.6 10^3/uL N 1.0-4.8 Abs Monocytes 0.4 10^3/uL N 0-0.8 Abs Eosinophils 0.1 10^3/uL N 0-0.6 Abs Basophils 0 10^3/uL N 0-0.2 Abs Nucleated RBC 0 10^3/uL N Neutrophil % 65 % N 38-83 Band % 2 % N 0-8 Lymphocytes % 26 % N 25-47 Monocytes % 3 % N 0-13 Eosinophils % 1 % N 0-6 Reactive Lymph % 3 % N 0-6 Macrocytosis 1+ N Laboratory test 11/26/2013 [facility] Erythrocyte Sed 10 mm/Hr N 0-[address] [place] [address] [phone] CBC With Manual 10/01/2013 White Blood 6.6 N 4.8-10.8 Diff Count 10^3/uL Red Blood Count 4.26 10^6/uL N 4.0-5.4 Hemoglobin 14.9 g/dL N 14.0-18.0 Hematocrit 43 % N 42-52 Mean Corpuscular Volume 102 fL High 80-94 Mean Corpuscular Hemoglobin 35 pg High 27-31 Mean Corpuscular HGB Conc 34 g/dL N 31-36 Red Cell Distribution Width 14 % N 10.5-15 Platelet Count 182 10^3/uL N 150-450 Mean Platelet Volume 8 um3 N 7.4-10.4 Abs Neutrophils 4.3 10^3/uL N 1.5-7.7 Abs Lymphocytes 1.7 10^3/uL N 1.0-4.8 Abs Monocytes 0.5 10^3/uL N 0-0.8 Abs Eosinophils 0.1 10^3/uL N 0-0.6 Abs Basophils 0.1 10^3/uL N 0-0.2 Abs Nucleated RBC 0 10^3/uL N Neutrophil % 60 % N 38-83 Band % 1 % N 0-8 Lymphocytes % 25 % N 25-47 Monocytes % 4 % N 0-13 Basophil % 2 % N 0-2 Reactive Lymph % 8 % High 0-6 Macrocytosis 1+ N Comp Metabolic Panel 10/01/2013 Sodium 139 mmol/L N 133-145 Potassium 4.2 mmol/L N 3.7-5.6 Chloride 105 mmol/L N 101-111 Co2 Carbon Dioxide 30 mmol/L N 22-32 Anion Gap 4 mmol/L N 2-11 Glucose 116 mg/dL High 70-100 Blood Urea Nitrogen 18 mg/dL N 6-24 Creatinine 1.10 mg/dL N 0.67-1.17 BUN/Creatinine Ratio 16.4 N 8-20 Calcium 9.2 mg/dL N 8.6-10.3 Total Protein 6.6 g/dL N 6.4-8.9 Albumin 4.2 g/dL N 3.2-5.2 Globulin 2.4 g/dL N 2-4 Albumin/Globulin Ratio 1.8 N 1-3 Total Bilirubin 0.80 mg/dL N 0.2-1.0 Alkaline Phosphatase 61 U/L N 34-104 Alt 8 U/L N 7-52 Ast 19 U/L N 13-39 Egfr Non- 63.8 N >60 Egfr 82.0 N >60 26 Laboratory test finding 10/01/2013 C Reactive Protein 1.78 mg/L N < 5.00 27 Erythrocyte Sed Rate 9 mm/Hr N 0-40 Comp Metabolic Panel 07/25/2013 [facility] Sodium 138 mmol/L 133-[address] [place] [address] [phone] Potassium 4.3 mmol/L 3.5-5.0 Chloride 103 mmol/L 101-111 Co2 Carbon Dioxide 30.0 mmol/L 22-32 Anion Gap 5.0 mmol/L 2-11 Glucose 93 mg/dL 70-100 Blood Urea Nitrogen 17 mg/dL 6-24 Creatinine 1.00 mg/dL 0.50-1.40 BUN/Creatinine Ratio 17.0 8-20 Calcium 9.4 mg/dL 8.1-9.9 Total Protein 6.2 g/dL 6.2-8.1 Albumin 4.0 g/dL 3.2-5.2 Globulin 2.2 g/dL 2-4 Albumin/Globulin Ratio 1.8 1-3 Total Bilirubin 1.1 mg/dL 0.4-1.5 Alkaline Phosphatase 69 U/L 30-110 Alt 10 U/L Low 14-54 Ast 25 U/L 12-42 Egfr Non- 71.2 >60 Egfr 91.6 >60 28 Laboratory test 07/25/2013 [facility] C Reactive < 0.5 mg/dL Less than finding [address] Protein 0.5 [place] [address] [phone] CBC With Manual 07/25/2013 [facility] White Blood 5.1 10^3/uL 4.8-10.[address] [place] [address] [phone] Red Blood Count 4.47 10^6/uL 4.0-5.4 Hemoglobin 15.6 g/dL 14.0-18.0 Hematocrit 45 % 42-52 Mean Corpuscular Volume 101 fL High 80-94 Mean Corpuscular Hemoglobin 35 pg High 27-31 Mean Corpuscular HGB Conc 35 g/dL 31-36 Red Cell Distribution Width 14 % 10.5-15 Platelet Count 174 10^3/uL 150-450 Mean Platelet Volume 8 um3 7.4-10.4 Abs Neutrophils 2.9 10^3/uL 1.5-7.7 Abs Lymphocytes 1.5 10^3/uL 1.0-4.8 Abs Monocytes 0.5 10^3/uL 0-0.8 Abs Eosinophils 0.1 10^3/uL 0-0.6 Abs Basophils 0 10^3/uL 0-0.2 Abs Nucleated RBC 0.01 10^3/uL Neutrophil % 57 % 38-83 Lymphocytes % 27 % 25-47 Monocytes % 9 % 0-13 Eosinophils % 3 % 0-6 Reactive Lymph % 4 % 0-6 Macrocytosis 1+ Laboratory test 07/25/2013 [facility] Erythrocyte Sed 10 mm/Hr 0-[address] [place] [address] [phone] CBC With Manual 06/24/2013 [facility] White Blood 6.7 4.8- 10.[address] Count 10^3/[place] [address] [phone] Red Blood Count 4.34 10^6/uL 4.0-5.4 Hemoglobin 14.5 g/dL 14.0-18.0 Hematocrit 44 % 42-52 Mean Corpuscular Volume 101 fL High 80-94 Mean Corpuscular Hemoglobin 34 pg High 27-31 Mean Corpuscular HGB Conc 33 g/dL 31-36 Red Cell Distribution Width 15 % 10.5-15 Platelet Count 185 10^3/uL 150-450 Mean Platelet Volume 8 um3 7.4-10.4 Abs Neutrophils 4.6 10^3/uL 1.5-7.7 Abs Lymphocytes 1.4 10^3/uL 1.0-4.8 Abs Monocytes 0.5 10^3/uL 0-0.8 Abs Eosinophils 0.2 10^3/uL 0-0.6 Abs Basophils 0 10^3/uL 0-0.2 Abs Nucleated RBC 0 10^3/uL Neutrophil % 60 % 38-83 Band % 1 % 0-8 Lymphocytes % 24 % Low 25-47 Monocytes % 9 % 0-13 Eosinophils % 4 % 0-6 Reactive Lymph % 2 % 0-6 Macrocytosis 1+ Comp Metabolic Panel 06/24/2013 [facility] Sodium 138 mmol/L 133-[address] [place] [address] [phone] Potassium 4.7 mmol/L 3.5-5.0 Chloride 107 mmol/L 101-111 Co2 Carbon Dioxide 30.0 mmol/L 22-32 Anion Gap 1.0 mmol/L Low 2-11 Glucose 78 mg/dL 70-100 Blood Urea Nitrogen 14 mg/dL 6-24 Creatinine 1.00 mg/dL 0.50-1.40 BUN/Creatinine Ratio 14.0 8-20 Calcium 9.2 mg/dL 8.1-9.9 Total Protein 6.2 g/dL 6.2-8.1 Albumin 3.7 g/dL 3.2-5.2 Globulin 2.5 g/dL 2-4 Albumin/Globulin Ratio 1.5 1-3 Total Bilirubin 1.0 mg/dL 0.4-1.5 Alkaline Phosphatase 78 U/L 30-110 Alt 6 U/L Low 14-54 Ast 24 U/L 12-42 Egfr Non- 71.2 >60 Egfr 91.6 >60 29 Laboratory test 06/24/2013 [facility] C Reactive < 0.5 mg/dL Less than finding [address] Protein 0.5 [place] [address] [phone] Erythrocyte Sed Rate 9 mm/Hr 0-40 CBC Auto Diff 04/01/2013 [facility] White Blood 6.2 10^3/uL 4.8-10.[address] [place] [address] [phone] Red Blood Count 4.39 10^6/uL 4.0-5.4 Hemoglobin 14.4 g/dL 14.0-18.0 Hematocrit 45 % 42-52 Mean Corpuscular Volume 102 fL High 80-94 Mean Corpuscular Hemoglobin 33 pg High 27-31 Mean Corpuscular HGB Conc 32 g/dL 31-36 Red Cell Distribution Width 14 % 10.5-15 Platelet Count 194 10^3/uL 150-450 Mean Platelet Volume 8 um3 7.4-10.4 Abs Neutrophils 4.0 10^3/uL 1.5-7.7 Abs Lymphocytes 1.6 10^3/uL 1.0-4.8 Abs Monocytes 0.4 10^3/uL 0-0.8 Abs Eosinophils 0.1 10^3/uL 0-0.6 Abs Basophils 0 10^3/uL 0-0.2 Abs Nucleated RBC 0 10^3/uL Granulocyte % 65.4 % 38-83 Lymphocyte % 25.2 % 25-47 Monocyte % 6.5 % 1-9 Eosinophil % 2.4 % 0-6 Basophil % 0.5 % 0-2 Nucleated Red Blood Cells % 0.1 Comp Metabolic Panel 04/01/2013 [facility] Sodium 140 mmol/L 133-[address] [place] [address] [phone] Potassium 4.3 mmol/L 3.5-5.0 Chloride 106 mmol/L 101-111 Co2 Carbon Dioxide 29.0 mmol/L 22-32 Anion Gap 5.0 mmol/L 2-11 Glucose 111 mg/dL High 70-100 Blood Urea Nitrogen 18 mg/dL 6-24 Creatinine 0.90 mg/dL 0.50-1.40 BUN/Creatinine Ratio 20.0 8-20 Calcium 9.5 mg/dL 8.1-9.9 Total Protein 6.7 g/dL 6.2-8.1 Albumin 3.6 g/dL 3.2-5.2 Globulin 3.1 g/dL 2-4 Albumin/Globulin Ratio 1.2 1-3 Total Bilirubin 1.2 mg/dL 0.4-1.5 Alkaline Phosphatase 61 U/L 30-110 Alt 6 U/L Low 14-54 Ast 22 U/L 12-42 Egfr Non- 80.4 >60 Egfr 103.4 >60 30 Laboratory test 04/01/2013 [facility] C Reactive < 0.5 mg/dL Less than finding [address] Protein 0.5 [place] [address] [phone] Erythrocyte Sed Rate 10 mm/Hr 0-40 CBC W/Manual 01/07/2013 [facility] White Blood 6.7 10^3/uL 4.8-10.[address] [place] [address] [phone] Red Blood Count 4.36 10^6/uL 4.0-5.4 Hemoglobin 15.4 g/dL 14.0-18.0 Hematocrit 45 % 42-52 Mean Corpuscular Volume 102 fL High 80-94 Mean Corpuscular Hemoglobin 35 pg High 27-31 Mean Corpuscular HGB Conc 35 g/dL 31-36 Red Cell Distribution Width 14 % 10.5-15 Platelet Count 201 10^3/uL 150-450 Mean Platelet Volume 8 um3 7.4-10.4 Abs Neutrophils 4.3 10^3/uL 1.5-7.7 Abs Lymphocytes 1.7 10^3/uL 1.0-4.8 Abs Monocytes 0.6 10^3/uL 0-0.8 Abs Eosinophils 0.2 10^3/uL 0-0.6 Abs Basophils 0 10^3/uL 0-0.2 Abs Nucleated RBC 0 10^3/uL Neutrophil % 68 % 38-83 Lymphocytes % 27 % 25-47 Monocytes % 4 % 0-13 Eosinophils % 1 % 0-6 RBC Morphology Normal Normal CMP Panel 01/07/2013 [facility] Sodium 139 mmol/L 133-[address] [place] [address] [phone] Potassium 4.3 mmol/L 3.5-5.0 Chloride 107 mmol/L 101-111 Co2 Carbon Dioxide 28.0 mmol/L 22-32 Anion Gap 4.0 mmol/L 2-11 Glucose 95 mg/dL 70-100 Blood Urea Nitrogen 14 mg/dL 6-24 Creatinine 1.00 mg/dL 0.50-1.40 BUN/Creatinine Ratio 14.0 8-20 Calcium 9.4 mg/dL 8.1-9.9 Total Protein 6.3 g/dL 6.2-8.1 Albumin 3.7 g/dL 3.2-5.2 Globulin 2.6 g/dL 2-4 Albumin/Globulin Ratio 1.4 1-3 Total Bilirubin 1.0 mg/dL 0.4-1.5 Alkaline Phosphatase 66 U/L 30-110 Alt 8 U/L Low 14-54 Ast 21 U/L 12-42 Egfr Non- 71.2 >60 Egfr 91.6 >60 31 Laboratory test 01/07/2013 [facility] C Reactive 0.6 mg/dL High Less than finding [address] Protein 0.5 [place] [address] [phone] Erythrocyte Sed Rate 14 mm/Hr 0-40 CBC Auto Diff 10/25/2012 [facility] White Blood 6.4 10^3/uL 4.8-10.[address] [place] [address] [phone] Red Blood Count 4.28 10^6/uL 4.0-5.4 Hemoglobin 15.0 g/dL 14.0-18.0 Hematocrit 43 % 42-52 Mean Corpuscular Volume 101 fL High 80-94 Mean Corpuscular Hemoglobin 35 pg High 27-31 Mean Corpuscular HGB Conc 35 g/dL 31-36 Red Cell Distribution Width 14 % 10.5-15 Platelet Count 176 10^3/uL 150-450 Mean Platelet Volume 8 um3 7.4-10.4 Abs Neutrophils 3.7 10^3/uL 1.5-7.7 Abs Lymphocytes 1.9 10^3/uL 1.0-4.8 Abs Monocytes 0.6 10^3/uL 0-0.8 Abs Eosinophils 0.2 10^3/uL 0-0.6 Abs Basophils 0 10^3/uL 0-0.2 Abs Nucleated RBC 0 10^3/uL Granulocyte % 58.3 % 38-83 Lymphocyte % 29.1 % 25-47 Monocyte % 9.0 % 1-9 Eosinophil % 3.2 % 0-6 Basophil % 0.4 % 0-2 Nucleated Red Blood Cells % 0 Comp Metabolic Panel 10/25/2012 [facility] Sodium 140 mmol/L 133-[address] [place] [address] [phone] Potassium 4.3 mmol/L 3.5-5.0 Chloride 106 mmol/L 101-111 Co2 Carbon Dioxide 27.0 mmol/L 22-32 Anion Gap 7.0 mmol/L 2-11 Glucose 101 mg/dL High 70-100 Blood Urea Nitrogen 18 mg/dL 6-24 Creatinine 0.90 mg/dL 0.50-1.40 BUN/Creatinine Ratio 20.0 8-20 Calcium 9.3 mg/dL 8.1-9.9 Total Protein 5.8 g/dL Low 6.2-8.1 Albumin 3.7 g/dL 3.2-5.2 Globulin 2.1 g/dL 2-4 Albumin/Globulin Ratio 1.8 1-3 Total Bilirubin 0.7 mg/dL 0.4-1.5 Alkaline Phosphatase 71 U/L 30-110 Alt 9 U/L Low 14-54 Ast 22 U/L 12-42 Egfr Non- 80.4 >60 Egfr 103.4 >60 32 Laboratory test 10/25/2012 [facility] C Reactive 0.7 mg/dL High Less than finding [address] Protein 0.5 [place] [address] [phone] Erythrocyte Sed Rate 11 mm/Hr 0-40 Cyclic Citrullinated Pept IgG >250.0 U Abnormal 33 Rheumatoid Factor 311 IU/mL Abnormal <15 34 Basic Metabolic Panel 07/31/2012 [facility] Sodium 139 mmol/L 133-[address] [place] [address] [phone] Potassium 4.2 mmol/L 3.5-5.0 Chloride 112 mmol/L High 101-111 Co2 Carbon Dioxide 25.0 mmol/L 22-32 Anion Gap 2.0 mmol/L 2-11 Glucose 101 mg/dL High 70-100 Blood Urea Nitrogen 20 mg/dL 6-24 Creatinine 1.00 mg/dL 0.50-1.40 BUN/Creatinine Ratio 20.0 8-20 Calcium 9.1 mg/dL 8.1-9.9 Egfr Non- 71.4 >60 Egfr 91.8 >60 35 Liver Function 07/31/2012 [facility] Total Protein 6.4 g/dL 6.2-8.[address] [place] [address] [phone] Albumin 3.9 g/dL 3.2-5.2 Globulin 2.5 g/dL 2-4 Albumin/Globulin Ratio 1.6 1-3 Total Bilirubin 0.9 mg/dL 0.4-1.5 Direct Bilirubin 0.2 mg/dL 0.1-0.5 Indirect Bilirubin 0.7 mg/dL 0.3-1.0 Alkaline Phosphatase 64 U/L 30-110 Alt 11 U/L Low 14-54 Ast 27 U/L 12-42 Laboratory test 07/31/2012 [facility] C Reactive 0.7 mg/dL High Less than finding [address] Protein 0.5 [place] [address] [phone] CBC With Manual 07/31/2012 [facility] White Blood 6.4 4.8- 10.[address] Count 10^3/[place] [address] [phone] Red Blood Count 4.14 10^6/uL 4.0-5.4 Hemoglobin 14.6 g/dL 14.0-18.0 Hematocrit 43 % 42-52 Mean Corpuscular Volume 103 fL High 80-94 Mean Corpuscular Hemoglobin 35 pg High 27-31 Mean Corpuscular HGB Conc 34 g/dL 31-36 Red Cell Distribution Width 14 % 10.5-15 Platelet Count 168 10^3/uL 150-450 Mean Platelet Volume 8 um3 7.4-10.4 Abs Neutrophils 4.4 10^3/uL 1.5-7.7 Abs Lymphocytes 1.4 10^3/uL 1.0-4.8 Abs Monocytes 0.5 10^3/uL 0-0.8 Abs Eosinophils 0.2 10^3/uL 0-0.6 Abs Basophils 0 10^3/uL 0-0.2 Abs Nucleated RBC 0 10^3/uL Neutrophil % 72 % 38-83 Band % 1 % 0-8 Lymphocytes % 20 % Low 25-47 Monocytes % 2 % 0-13 Eosinophils % 4 % 0-6 Reactive Lymph % 1 % 0-6 Macrocytosis 1+ Laboratory test 07/31/2012 [facility] Erythrocyte Sed 9 mm/Hr 0-[address] [place] [address] [phone] CBC With Manual 05/31/2012 [facility] White Blood 5.9 4.8- 10.[address] Count 10^3/[place] [address] [phone] Red Blood Count 4.10 10^6/uL 4.0-5.4 Hemoglobin 14.3 g/dL 14.0-18.0 Hematocrit 42 % 42-52 Mean Corpuscular Volume 103 fL High 80-94 Mean Corpuscular Hemoglobin 35 pg High 27-31 Mean Corpuscular HGB Conc 34 g/dL 31-36 Red Cell Distribution Width 14 % 10.5-15 Platelet Count 179 10^3/uL 150-450 Mean Platelet Volume 8 um3 7.4-10.4 Abs Neutrophils 3.7 10^3/uL 1.5-7.7 Abs Lymphocytes 1.6 10^3/uL 1.0-4.8 Abs Monocytes 0.4 10^3/uL 0-0.8 Abs Eosinophils 0.2 10^3/uL 0-0.6 Abs Basophils 0 10^3/uL 0-0.2 Abs Nucleated RBC 0 10^3/uL Neutrophil % 66.0 % 38-83 Band % 2.0 % 0-8 Lymphocytes % 11.0 % Low 25-47 Monocytes % 9.0 % 0-13 Eosinophils % 6.0 % 0-6 Basophil % 0 % 0-2 Reactive Lymph % 6.0 % 0-6 Metamyelocytes % 0 % 0-2 Myelocytes % 0 % 0-1 Promyelocytes % 0 % Blast % 0 % Macrocytosis 1+ Laboratory test 05/31/2012 [facility] Erythrocyte Sed 10 mm/Hr 0-[address] [place] [address] [phone] Laboratory test 05/31/2012 [facility] C Reactive 1.4 mg/dL High Less finding [address] Protein than 0.5 [place] [address] [phone] Comp Metabolic 05/31/2012 [facility] Sodium 141 133-[address] mmol/[place] [address] [phone] Potassium 4.1 mmol/L 3.5-5.0 Chloride 107 mmol/L 101-111 Co2 Carbon Dioxide 30.0 mmol/L 22-32 Anion Gap 4.0 mmol/L 2-11 Glucose 97 mg/dL 70-100 Blood Urea Nitrogen 14 mg/dL 6-24 Creatinine 0.90 mg/dL 0.50-1.40 BUN/Creatinine Ratio 15.6 8-20 Calcium 9.5 mg/dL 8.1-9.9 Total Protein 6.3 g/dL 6.2-8.1 Albumin 3.9 g/dL 3.2-5.2 Globulin 2.4 g/dL 2-4 Albumin/Globulin Ratio 1.6 1-3 Total Bilirubin 0.7 mg/dL 0.4-1.5 Alkaline Phosphatase 77 U/L 30-110 Alt 19 U/L 14-54 Ast 30 U/L 12-42 Egfr Non- 80.6 >60 Egfr 103.6 >60 36 Comp Metabolic Panel 03/14/2012 [facility] Sodium 139 mmol/L 135-[address] [place] [address] [phone] Potassium 4.4 mmol/L 3.5-5.0 Chloride 104 mmol/L 101-111 Co2 (Carbon Dioxide) 30.0 mmol/L 22-32 Anion Gap 5.0 mmol/L 2-11 37 Glucose 86 mg/dL 70-100 BUN 14 mg/dL 6-24 Creatinine 1.0 mg/dL 0.50-1.40 One Over Creatinine 1.00 BUN/Creatinine Ratio 14.0 8-20 Calcium 9.9 mg/dL 8.1-9.9 Total Protein 6.7 GM/DL 6.2-8.1 Albumin 4.0 GM/DL 3.2-5.2 Globulin 2.7 GM/DL 2-4 Albumin/Globulin Ratio 1.5 1-3 Bilirubin Total 1.0 mg/dL 0.4-1.5 38 Alkaline Phosphatase 66 U/L 39-117 Alt (SGPT) 6 U/L Low 17-63 Ast (Sgot) 25 U/L 12-42 eGFR Non- 71.4 > 60 eGFR 91.8 > 60 39 Laboratory test 03/14/2012 [facility] Erythrocyte Sed 11 MM/HR 0-[address] [place] [address] [phone] C Reactive Protein 0.6 mg/dL High Less Than 0.5 CBC With Manual 03/14/2012 [facility] White Blood 6.8 CUMM 4.8-10.[address] [place], [place] [id number] [phone] Red Cell Count 4.34 CUMM Low 4.6-6.2 Hemoglobin 15.2 g/dL 14.0-18.0 Hematocrit 45 % 42-52 Mean Corpuscular Volume 104 um3 High 80-94 Mean Corpuscular Hemoglob 35 pg High 27-31 Mean Corpuscular HGB Cone 34 g/dL 32-36 Redcell Distribution WDTH 14 % 10.5-15 Platelet Count 174 CUMM 150-450 Mean Platelet Volume 8.0 um3 7.4-10.4 Absolute Neutrophil Count 4.2 1.5-7.7 Polysegmented Neutrophil 69 % 38-83 Band Neutrophil 1 % 0-8 Lymphocyte 20 % Low 25-47 Monocyte 4 % 0-13 Eosinophil 2 % 0-6 Atypical Lymph 4 % 0-6 Anisocytosis SLIGHT Macrocytosis SLIGHT CBC With Manual 11/30/2011 [facility] White Blood 7.6 CUMM 4.8-10.[address] Count [place], [place] [id number] [phone] Red Cell Count 4.11 CUMM Low 4.6-6.2 Hemoglobin 14.7 g/dL 14.0-18.0 Hematocrit 42 % 42-52 Mean Corpuscular Volume 102 um3 High 80-94 Mean Corpuscular Hemoglob 36 pg High 27-31 Mean Corpuscular HGB Cone 35 g/dL 32-36 Redcell Distribution WDTH 14 % 10.5-15 Platelet Count 205 CUMM 150-450 Mean Platelet Volume 8.2 um3 7.4-10.4 Absolute Neutrophil Count 4.7 1.5-7.7 Polysegmented Neutrophil 62 % 38-83 Lymphocyte 26 % 25-47 Monocyte 11 % 0-13 Eosinophil 1 % 0-6 RBC Morphology NORMAL Liver Function 11/30/2011 [facility] Total Protein 6.2 GM/DL 6.2-8.[address] [place] [address] [phone] Albumin 3.7 GM/DL 3.2-5.2 Globulin 2.5 GM/DL 2-4 Albumin/Globulin Ratio 1.5 1-3 Bilirubin Total 0.8 mg/dL 0.4-1.5 40 Bilirubin Direct 0.2 mg/dL 0.1-0.5 Indirect Bilirubin 0.6 mg/dL 0.3-1.0 41 Alkaline Phosphatase 59 U/L 39-117 Alt (SGPT) 22 U/L 17-63 Ast (Sgot) 46 U/L High 12-42 Basic Metabolic Panel 11/30/2011 [facility] Sodium 137 mmol/L 135-[address] [place] [address] [phone] Potassium 4.3 mmol/L 3.5-5.0 Chloride 107 mmol/L 101-111 Co2 (Carbon Dioxide) 25.0 mmol/L 22-32 Anion Gap 5.0 mmol/L 2-11 42 Glucose 106 mg/dL High 70-100 BUN 16 mg/dL 6-24 Creatinine 1.0 mg/dL 0.50-1.40 One Over Creatinine 1.00 BUN/Creatinine Ratio 16.0 8-20 Calcium 9.3 mg/dL 8.1-9.9 eGFR Non- 71.4 > 60 eGFR 91.8 > 60 43 Laboratory test 11/30/2011 [facility] Erythrocyte Sed 19 MM/HR 0-[address] [place] [address] [phone] C Reactive Protein 1.5 mg/dL High Less Than 0.5 Laboratory test 07/31/2011 [facility] Erythrocyte Sed 11 MM/HR 0-[address] [place] [address] [phone] CBC With Manual 07/31/2011 [facility] White Blood 7.8 CUMM 4.8-10.[address] [place] [address] [phone] Red Cell Count 4.45 CUMM Low 4.6-6.2 Hemoglobin 15.5 g/dL 14.0-18.0 Hematocrit 45 % 42-52 Mean Corpuscular Volume 100 um3 High 80-94 Mean Corpuscular Hemoglob 35 pg High 27-31 Mean Corpuscular HGB Cone 35 g/dL 32-36 Redcell Distribution WDTH 15 % 10.5-15 Platelet Count 191 CUMM 150-450 Mean Platelet Volume 8.8 um3 7.4-10.4 Polysegmented Neutrophil 64 % 38-83 Lymphocyte 28 % 25-47 Monocyte 5 % 0-13 Eosinophil 2 % 0-6 Basophil 1 % 0-2 Absolute Neutrophil Count 4.9 Anisocytosis SLIGHT Laboratory test 07/31/2011 [facility] C Reactive 0.9 mg/dL High Less Than finding [address] Protein 0.5 [place] [address] [phone] Comp Metabolic 07/31/2011 [facility] Sodium 141 mmol/L 135- [address] [place] [address] [phone] Potassium 4.2 mmol/L 3.5-5.0 Chloride 104 mmol/L 101-111 Co2 (Carbon Dioxide) 29.0 mmol/L 22-32 Anion Gap 8.0 mmol/L 2-11 44 Glucose 143 mg/dL High 70-100 BUN 17 mg/dL 6-24 Creatinine 1.1 mg/dL 0.50-1.40 One Over Creatinine 0.90 BUN/Creatinine Ratio 15.5 8-20 Calcium 9.2 mg/dL 8.1-9.9 Total Protein 6.7 GM/DL 6.2-8.1 Albumin 3.8 GM/DL 3.2-5.2 Globulin 2.9 GM/DL 2-4 Albumin/Globulin Ratio 1.3 1-3 Bilirubin Total 0.9 mg/dL 0.4-1.5 45 Alkaline Phosphatase 70 U/L 39-117 Alt (SGPT) 10 U/L Low 17-63 Ast (Sgot) 22 U/L 12-42 eGFR Non- 64.1 > 60 eGFR 82.4 > 60 46 1 Because ethnic data is not always readily available, this report includes an eGFR for both -Americans and non- Americans. The National Kidney Disease Education Program (NKDEP) does not endorse the use of the MDRD equation for patients that are not between the ages of 18 and 70, are , have extremes of body size, muscle mass, or nutritional status, or are non- or non-. According to the National Kidney Foundation, irrespective of diagnosis, the stage of the disease is based on the level of kidney function: Stage Description GFR(mL/min/1.73 m(2)) 1 Kidney damage with normal or decreased GFR 90 2 Kidney damage with mild decrease in GFR 60-89 3 Moderate decrease in GFR 30-59 4 Severe decrease in GFR 15-29 5 Kidney failure <15 (or dialysis) 2 REFERENCE VALUE <=1.0 (Negative) 3 Interpretation: Strong Positive (>=60.0) REFERENCE VALUE <20.0 (Negative) 4 RESULT: Compatible with rheumatoid arthritis. Test Performed by: [place] [address] 5 Please check labs today 6 Please check labs today 7 Acute inflammation: >10.00 8 Please check labs today 9 Because ethnic data is not always readily available, this report includes an eGFR for both -Americans and non- Americans. The National Kidney Disease Education Program (NKDEP) does not endorse the use of the MDRD equation for patients that are not between the ages of 18 and 70, are , have extremes of body size, muscle mass, or nutritional status, or are non- or non-. According to the National Kidney Foundation, irrespective of diagnosis, the stage of the disease is based on the level of kidney function: Stage Description GFR(mL/min/1.73 m(2)) 1 Kidney damage with normal or decreased GFR 90 2 Kidney damage with mild decrease in GFR 60-89 3 Moderate decrease in GFR 30-59 4 Severe decrease in GFR 15-29 5 Kidney failure <15 (or dialysis) 10 Because ethnic data is not always readily available, this report includes an eGFR for both -Americans and non- Americans. The National Kidney Disease Education Program (NKDEP) does not endorse the use of the MDRD equation for patients that are not between the ages of 18 and 70, are , have extremes of body size, muscle mass, or nutritional status, or are non- or non-. According to the National Kidney Foundation, irrespective of diagnosis, the stage of the disease is based on the level of kidney function: Stage Description GFR(mL/min/1.73 m(2)) 1 Kidney damage with normal or decreased GFR 90 2 Kidney damage with mild decrease in GFR 60-89 3 Moderate decrease in GFR 30-59 4 Severe decrease in GFR 15-29 5 Kidney failure <15 (or dialysis) 11 *Ascorbic acid is present which may interfere with detection of blood. 12 Acute inflammation: >10.00 13 standing orders q 6 weeks 14 Because ethnic data is not always readily available, this report includes an eGFR for both -Americans and non- Americans. The National Kidney Disease Education Program (NKDEP) does not endorse the use of the MDRD equation for patients that are not between the ages of 18 and 70, are , have extremes of body size, muscle mass, or nutritional status, or are non- or non-. According to the National Kidney Foundation, irrespective of diagnosis, the stage of the disease is based on the level of kidney function: Stage Description GFR(mL/min/1.73 m(2)) 1 Kidney damage with normal or decreased GFR 90 2 Kidney damage with mild decrease in GFR 60-89 3 Moderate decrease in GFR 30-59 4 Severe decrease in GFR 15-29 5 Kidney failure <15 (or dialysis) 15 standing orders q 6 weeks 16 Acute inflammation: >10.00 17 standing orders q 6 weeks 18 Because ethnic data is not always readily available, this report includes an eGFR for both -Americans and non- Americans. The National Kidney Disease Education Program (NKDEP) does not endorse the use of the MDRD equation for patients that are not between the ages of 18 and 70, are , have extremes of body size, muscle mass, or nutritional status, or are non- or non-. According to the National Kidney Foundation, irrespective of diagnosis, the stage of the disease is based on the level of kidney function: Stage Description GFR(mL/min/1.73 m(2)) 1 Kidney damage with normal or decreased GFR 90 2 Kidney damage with mild decrease in GFR 60-89 3 Moderate decrease in GFR 30-59 4 Severe decrease in GFR 15-29 5 Kidney failure <15 (or dialysis) 19 Because ethnic data is not always readily available, this report includes an eGFR for both -Americans and non- Americans. The National Kidney Disease Education Program (NKDEP) does not endorse the use of the MDRD equation for patients that are not between the ages of 18 and 70, are , have extremes of body size, muscle mass, or nutritional status, or are non- or non-. According to the National Kidney Foundation, irrespective of diagnosis, the stage of the disease is based on the level of kidney function: Stage Description GFR(mL/min/1.73 m(2)) 1 Kidney damage with normal or decreased GFR 90 2 Kidney damage with mild decrease in GFR 60-89 3 Moderate decrease in GFR 30-59 4 Severe decrease in GFR 15-29 5 Kidney failure <15 (or dialysis) 20 Normal Range 180 to 914 Indeterminate Range 145 to 180 Deficient Range <145 21 Because ethnic data is not always readily available, this report includes an eGFR for both -Americans and non- Americans. The National Kidney Disease Education Program (NKDEP) does not endorse the use of the MDRD equation for patients that are not between the ages of 18 and 70, are , have extremes of body size, muscle mass, or nutritional status, or are non- or non-. According to the National Kidney Foundation, irrespective of diagnosis, the stage of the disease is based on the level of kidney function: Stage Description GFR(mL/min/1.73 m(2)) 1 Kidney damage with normal or decreased GFR 90 2 Kidney damage with mild decrease in GFR 60-89 3 Moderate decrease in GFR 30-59 4 Severe decrease in GFR 15-29 5 Kidney failure <15 (or dialysis) 22 Acute inflammation: >10.00 23 Consistent with previous results. 24 Because ethnic data is not always readily available, this report includes an eGFR for both -Americans and non- Americans. The National Kidney Disease Education Program (NKDEP) does not endorse the use of the MDRD equation for patients that are not between the ages of 18 and 70, are , have extremes of body size, muscle mass, or nutritional status, or are non- or non-. According to the National Kidney Foundation, irrespective of diagnosis, the stage of the disease is based on the level of kidney function: Stage Description GFR(mL/min/1.73 m(2)) 1 Kidney damage with normal or decreased GFR 90 2 Kidney damage with mild decrease in GFR 60-89 3 Moderate decrease in GFR 30-59 4 Severe decrease in GFR 15-29 5 Kidney failure <15 (or dialysis) 25 Acute inflammation: >10.00 26 Because ethnic data is not always readily available, this report includes an eGFR for both -Americans and non- Americans. The National Kidney Disease Education Program (NKDEP) does not endorse the use of the MDRD equation for patients that are not between the ages of 18 and 70, are , have extremes of body size, muscle mass, or nutritional status, or are non- or non-. According to the National Kidney Foundation, irrespective of diagnosis, the stage of the disease is based on the level of kidney function: Stage Description GFR(mL/min/1.73 m(2)) 1 Kidney damage with normal or decreased GFR 90 2 Kidney damage with mild decrease in GFR 60-89 3 Moderate decrease in GFR 30-59 4 Severe decrease in GFR 15-29 5 Kidney failure <15 (or dialysis) 27 Acute inflammation: >10.00 28 Because ethnic data is not always readily available, this report includes an eGFR for both -Americans and non- Americans. The National Kidney Disease Education Program (NKDEP) does not endorse the use of the MDRD equation for patients that are not between the ages of 18 and 70, are , have extremes of body size, muscle mass, or nutritional status, or are non- or non-. According to the National Kidney Foundation, irrespective of diagnosis, the stage of the disease is based on the level of kidney function: Stage Description GFR(mL/min/1.73 m(2)) 1 Kidney damage with normal or decreased GFR 90 2 Kidney damage with mild decrease in GFR 60-89 3 Moderate decrease in GFR 30-59 4 Severe decrease in GFR 15-29 5 Kidney failure <15 (or dialysis) 29 Because ethnic data is not always readily available, this report includes an eGFR for both -Americans and non- Americans. The National Kidney Disease Education Program (NKDEP) does not endorse the use of the MDRD equation for patients that are not between the ages of 18 and 70, are , have extremes of body size, muscle mass, or nutritional status, or are non- or non-. According to the National Kidney Foundation, irrespective of diagnosis, the stage of the disease is based on the level of kidney function: Stage Description GFR(mL/min/1.73 m(2)) 1 Kidney damage with normal or decreased GFR 90 2 Kidney damage with mild decrease in GFR 60-89 3 Moderate decrease in GFR 30-59 4 Severe decrease in GFR 15-29 5 Kidney failure <15 (or dialysis) 30 Because ethnic data is not always readily available, this report includes an eGFR for both -Americans and non- Americans. The National Kidney Disease Education Program (NKDEP) does not endorse the use of the MDRD equation for patients that are not between the ages of 18 and 70, are , have extremes of body size, muscle mass, or nutritional status, or are non- or non-. According to the National Kidney Foundation, irrespective of diagnosis, the stage of the disease is based on the level of kidney function: Stage Description GFR(mL/min/1.73 m(2)) 1 Kidney damage with normal or decreased GFR 90 2 Kidney damage with mild decrease in GFR 60-89 3 Moderate decrease in GFR 30-59 4 Severe decrease in GFR 15-29 5 Kidney failure <15 (or dialysis) 31 Because ethnic data is not always readily available, this report includes an eGFR for both -Americans and non- Americans. The National Kidney Disease Education Program (NKDEP) does not endorse the use of the MDRD equation for patients that are not between the ages of 18 and 70, are , have extremes of body size, muscle mass, or nutritional status, or are non- or non-. According to the National Kidney Foundation, irrespective of diagnosis, the stage of the disease is based on the level of kidney function: Stage Description GFR(mL/min/1.73 m(2)) 1 Kidney damage with normal or decreased GFR 90 2 Kidney damage with mild decrease in GFR 60-89 3 Moderate decrease in GFR 30-59 4 Severe decrease in GFR 15-29 5 Kidney failure <15 (or dialysis) 32 Because ethnic data is not always readily available, this report includes an eGFR for both -Americans and non- Americans. The National Kidney Disease Education Program (NKDEP) does not endorse the use of the MDRD equation for patients that are not between the ages of 18 and 70, are , have extremes of body size, muscle mass, or nutritional status, or are non- or non-. According to the National Kidney Foundation, irrespective of diagnosis, the stage of the disease is based on the level of kidney function: Stage Description GFR(mL/min/1.73 m(2)) 1 Kidney damage with normal or decreased GFR 90 2 Kidney damage with mild decrease in GFR 60-89 3 Moderate decrease in GFR 30-59 4 Severe decrease in GFR 15-29 5 Kidney failure <15 (or dialysis) 33 Interpretation: Strong Positive (>=60.0) -- REFERENCE VALUE -- <20.0 (Negative) Test Performed by: [place] [address] [employer] Operator: Kb Garcia III, M.D. 34 Test Performed by: [place] [address] [employer] Operator: Kb Garcia III, M.D. 35 Because ethnic data is not always readily available, this report includes an eGFR for both -Americans and non- Americans. The National Kidney Disease Education Program (NKDEP) does not endorse the use of the MDRD equation for patients that are not between the ages of 18 and 70, are , have extremes of body size, muscle mass, or nutritional status, or are non- or non-. According to the National Kidney Foundation, irrespective of diagnosis, the stage of the disease is based on the level of kidney function: Stage Description GFR(mL/min/1.73 m(2)) 1 Kidney damage with normal or decreased GFR 90 2 Kidney damage with mild decrease in GFR 60-89 3 Moderate decrease in GFR 30-59 4 Severe decrease in GFR 15-29 5 Kidney failure <15 (or dialysis) 36 Because ethnic data is not always readily available, this report includes an eGFR for both -Americans and non- Americans. The National Kidney Disease Education Program (NKDEP) does not endorse the use of the MDRD equation for patients that are not between the ages of 18 and 70, are , have extremes of body size, muscle mass, or nutritional status, or are non- or non-. According to the National Kidney Foundation, irrespective of diagnosis, the stage of the disease is based on the level of kidney function: Stage Description GFR(mL/min/1.73 m(2)) 1 Kidney damage with normal or decreased GFR 90 2 Kidney damage with mild decrease in GFR 60-89 3 Moderate decrease in GFR 30-59 4 Severe decrease in GFR 15-29 5 Kidney failure <15 (or dialysis) 37 Anion gap measurement may be of limited value in the presence of any alkalosis, especially in a combined acid base disorder. . 38 A metabolite of Naproxen, O-desmethylnaproxen, has been shown to interfere with the Jendrassik-Yolanda method for measuring total bilirubin. Samples from patients who have taken Naproxen have shown spurious elevation in total bilirubin levels. 39 Because ethnic data is not always readily available, this report includes an eGFR for both -Americans and non- Americans. The National Kidney Disease Education Program (NKDEP) does not endorse the use of the MDRD equation for patients that are not between the ages of 18 and 70, are , have extremes of body size, muscle mass, or nutritional status, or are non- or non-. According to the National Kidney Foundation, irrespective of diagnosis, the stage of the disease is based on the level of kidney function: Stage Description GFR(mL/min/1.73 m(2)) 1 Kidney damage with normal or decreased GFR 90 2 Kidney damage with mild decrease in GFR 60-89 3 Moderate decrease in GFR 30-59 4 Severe decrease in GFR 15-29 5 Kidney failure <15 (or dialysis) 40 A metabolite of Naproxen, O-desmethylnaproxen, has been shown to interfere with the Jendrassik-Cornucopia method for measuring total bilirubin. Samples from patients who have taken Naproxen have shown spurious elevation in total bilirubin levels. 41 Please note updated reference range, effective 01/13/10 42 Anion gap measurement may be of limited value in the presence of any alkalosis, especially in a combined acid base disorder. . 43 Because ethnic data is not always readily available, this report includes an eGFR for both -Americans and non- Americans. The National Kidney Disease Education Program (NKDEP) does not endorse the use of the MDRD equation for patients that are not between the ages of 18 and 70, are , have extremes of body size, muscle mass, or nutritional status, or are non- or non-. According to the National Kidney Foundation, irrespective of diagnosis, the stage of the disease is based on the level of kidney function: Stage Description GFR(mL/min/1.73 m(2)) 1 Kidney damage with normal or decreased GFR 90 2 Kidney damage with mild decrease in GFR 60-89 3 Moderate decrease in GFR 30-59 4 Severe decrease in GFR 15-29 5 Kidney failure <15 (or dialysis) 44 Anion gap measurement may be of limited value in the presence of any alkalosis, especially in a combined acid base disorder. . 45 A metabolite of Naproxen, O-desmethylnaproxen, has been shown to interfere with the Jendrassik-Cornucopia method for measuring total bilirubin. Samples from patients who have taken Naproxen have shown spurious elevation in total bilirubin levels. 46 Because ethnic data is not always readily available, this report includes an eGFR for both -Americans and non- Americans. The National Kidney Disease Education Program (NKDEP) does not endorse the use of the MDRD equation for patients that are not between the ages of 18 and 70, are , have extremes of body size, muscle mass, or nutritional status, or are non- or non-. According to the National Kidney Foundation, irrespective of diagnosis, the stage of the disease is based on the level of kidney function: Stage Description GFR(mL/min/1.73 m(2)) 1 Kidney damage with normal or decreased GFR 90 2 Kidney damage with mild decrease in GFR 60-89 3 Moderate decrease in GFR 30-59 4 Severe decrease in GFR 15-29 5 Kidney failure <15 (or dialysis) Procedures Date Code Description Status 10/17/201786061 Inject/Drain Joint/Bursa Major W/O US Completed 07/23/201798868 Inject/Drain Joint/Bursa Major W/O US Completed 02/28/2016 49188 ECHO Transthorasic Realtime 2D W Doppler & Color Flow Hosp Completed 11/27/2015 53908 EKG, Interpretation Only Completed 11/27/2015 91296 Open TX Of Femoral FX,Promimal End,Neck Internal Fixation Completed 11/27/2015 20251 Open TX Of Femoral FX,Promimal End,Neck Internal Fixation Completed 09/29/201522056 Inject/Drain Joint/Bursa Major W/O US Completed 02/11/201504290 Inject/Drain Joint/Bursa Major W/O US Completed 01/21/2015 65348 Inject Tendon Sheath Or Ligament Aponeurosis Eg Plantar Completed Fascia 12/28/201488638 Inject/Drain Joint/Bursa Major W/O US Completed 11/30/2014 06024 ECHO Transthoracic, Real-Time 2D With Doppler And Color Completed Flow 01/18/2011 00508 Rad Shoulder Comp, Min. 2 Views Completed 01/18/201174331 Inject/Drain Joint/Bursa Major W/O US Completed 11/10/2009 44417 Rad Shoulder Comp, Min. 2 Views Completed 11/10/200964747 Inject/Drain Joint/Bursa Major W/O US Completed Encounters Type Date Location Provider Dx Diagnosis Office Visit 05/01/2018 Orthopedic Richard Garcia M.D. Z96.642 Presence of left 10:30a Services Of [facility].MSherifASherif artificial hip joint M25.552 Pain in left hip Office Visit 04/24/2018 3:00p Lee Fong G20 [facility]'s [facility] Connelly M.D. disease I95.1 Orthostatic hypotension Office Visit 02/06/2018 2:00p Lee Fong G20 [facility] M.D. disease I95.1 Orthostatic hypotension Office Visit 01/08/2018 10:45a Lee Hobson. 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, multiple sites Z79.899 Other extermination supervisor (current) drug therapy Office Visit 12/14/2017 Neurohospitalist Loy Jones Parkinson's 9:00a [facility] Connelly disease I95.1 Orthostatic hypotension M06.9 Rheumatoid arthritis, unspecified Office Visit 11/26/2017 11:00a Rheumatology Wai M06.9 Rheumatoid [facility] [place] Mcmullen arthritis, unspecified M65.812 Other synovitis and tenosynovitis, left shoulder 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 tenosynovitis, left shoulder M75.52 Bursitis of left shoulder Office Visit 07/09/2017 Orthopedic Richard Garcia M65.812 Other synovitis and 1:30p Services Of [facility] tenosynovitis, left C.M.A. shoulder Z96.652 Presence of left artificial knee joint Z96.651 Presence of right artificial knee joint M75.82 Other shoulder lesions, left shoulder Office Visit 04/04/2017 9:45a Lee Jones Parkinson's Faisal Connelly M.D. disease [facility] Office Visit 11/14/2016 4:00p Lee Jones Parkinson's Neurologic [place] Connelly disease [facility] Office Visit 07/18/2016 8:45a Lee Jones Parkinson's Neurologic [place] Connelly disease [facility] Office Visit 05/11/2016 1:00p Orthopedic Cristine Jain, M75.121 Complete Services Of [facility] emigdio Hennessy tear/ruptr of r shoulder, not trauma M19.011 Primary osteoarthritis, right shoulder Office Visit 04/26/2016 [place] Faisal Granado S. G20 Parkinson's 2:30p Services Of Daniel Connelly M.D. disease Office Visit 03/29/2016 Orthopedic Omer Cota, S72.002D Fx unsp part of 9:30a Services Of [place] nk of cristel garcia, subs for clos fx w routn heal Office Visit 03/01/2016 [facility] Theresa Tavarez, R55 Syncope and 2:53p Assocferny M.D. 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 G20 Parkinson's [facility] Fu[place] Connelly disease Z91.81 History of falling Office Visit 11/29/2015 9:49a [facility] Cassia Falcon, S72.002A Fracture of Assoc,pc N.P. unsp part of Hospitalists neck of left femur, init M06.9 Rheumatoid arthritis, unspecified G20 Parkinson's disease Office Visit 11/28/2015 [facility] Ti M06.9 Rheumatoid 9:48a Assoc,pc Duran, N.P. arthritis, Hospitalists unspecified G20 Parkinson's disease S72.002A Fracture of unsp part of neck of left femur, init Office Visit 11/27/2015 9:48a [facility] G20 Parkinson's Assoc,ferny Duran, N.P. disease Hospitalists M06.9 Rheumatoid arthritis, unspecified S72.002A Fracture of unsp part of neck of left femur, init Office Visit 11/26/2015 [facility] M06.9 Rheumatoid 9:47a Assoc, Roger, N.P. arthritis, Hospitalists unspecified G20 Parkinson's disease S72.002A Fracture of unsp part of neck of left femur, init Office Visit 10/27/2015 [facility] Loy SSherif G20 Parkinson's 11:45a Services Of Daniel Connelly M.D. disease Office Visit 09/29/2015 Maricarmen Garcia M75.121 Complete 9:00a Services Of Minoo Merida rotatr-cuff tear/ruptr of r shoulder, not trauma Office Visit 09/08/2015 Rheumatology Ana Quiñones M05.79 Rheu arthritis w 11:30a Services Of [facility] rheu factor mult site w/o org/sys involv M75.121 Complete rotatr-cuff tear/ruptr of r shoulder, not trauma Z79.899 Other mcfp (current) drug therapy Office Visit 06/09/2015 1:00p Rheumatology Ana Quiñones M05.79 Rheu arthritis Services Of [facility] w rheu factor mult site w/o org/sys involv M75.121 Complete rotatr-cuff tear/ruptr of r shoulder, not trauma Z79.899 Other extermination supervisor (current) drug therapy Office Visit 06/02/2015 10:30a [facility] Loy SSherif G20 Parkinson's Services Of Daniel Connelly M.D. disease I95.1 Orthostatic hypotension Office Visit 03/18/2015 Orthopedic Svetlana Leung75.121 Complete rotatr- cuff 9:15a Services Of Fuad tear/ruptr of r C.M.A. shoulder, not trauma Office Visit 03/17/2015 [place] Gladis G20 Parkinson's disease 10:30a Neurologic Surinder, COSMETIC MANAGER Services Of [facility] Office Visit 02/25/2015 Orthopedic Adrian Bajwa, 715.11 Osteoarthrosis 9:30a Services Of M.D. Localized Prim [facility] Shoulder Region Office Visit 02/11/2015 Orthopedic Adrian Bajwa, 715.11 Osteoarthrosis 8:40a Services Of M.D. Localized Prim [facility] Shoulder Region 727.62 Ruptured Tendon Biceps (Long Head) Office Visit 01/21/2015 8:30a Orthopedic Adrian Bajwa 727.62 Ruptured Tendon Services Of [facility]. Fuad Biceps (Long Head) 726.13 Partial Tear Of Rotator Cuff Office Visit 01/13/2015 Orthopedic Neena 715.11 Osteoarthrosis 1:00p Services Of GENNA Lozano Localized Prim [facility]. Shoulder Region 727.09 Synovitis & Tenosynovitis Other Office Visit 12/28/2014 10:30a Orthopedic Richard Garcia 715.11 Osteoarthrosis Services Of M.DSherif Localized Prim C[facility]A. Shoulder Region Office Visit 12/22/2014 2:00p Lee Griffith 332.0 Paralysis Ankushitanfunmi Cadena COSMETIC MANAGER [facility] Office Visit 11/25/2014 10:00a Lee Griffith 332.0 Paralysis Rosy Cadena COSMETIC MANAGER [facility] 780.4 Dizziness & Giddiness 785.3 Abnormal Heart Sounds Other Office Visit 11/11/2014 8:30a [place] Faisal Cadena 332.0 Paralysis [facility] COSMETIC MANAGER Agitans 458.0 Hypotension Orthostatic 780.4 Dizziness & Giddiness Office Visit 08/21/2014 10:45a [place] Faisal Fong 332.0 Paralysis [facility] Fuad Connelly Office Visit 04/02/2014 9:30a Rheumatology Ana Quiñones, 714.0 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[facility] CHARACTER ARTIST Arthritis V58.69 Medications [facility] (Current) Use Encounter 733.90 Bone & Cartilage Disorder Unspec Office Visit 03/17/2014 9:15a Lee Fong 332.0 Paralysis [facility] Fuad Connelly 458.0 Hypotension Orthostatic Office Visit 02/11/2014 8:45a Lee Fong 332.0 Paralysis [facility] Fuad Connelly Agitans 780.79 Malaise And Fatigue Other 458.0 Hypotension Orthostatic Office Visit 12/24/2013 2:00p Rheumatology Ana Quiñones, 714.0 Rheumatoid [facility] CHARACTER ARTIST Arthritis V58.69 Medications First Line Production Supervisor (Current) Use Encounter Office Visit 10/01/2013 2:00p Rheumatology Ana Quiñones 714.0 Rheumatoid Services Of [employer] Specialist CHARACTER ARTIST Arthritis V58.69 Medications [facility] (Current) Use Encounter Office Visit 07/25/2013 11:00a [facility] Loy Fong 332.0 Paralysis [facility] Fuad Connelly Agghulams Office Visit 06/24/2013 9:30a Rheumatology Ana Quiñones 714.0 Rheumatoid [facility] CHARACTER ARTIST Arthritis V58.69 Medications First Line Production Supervisor (Current) Use Encounter Office Visit 04/01/2013 9:40a Rheumatology Ana Quiñones 714.0 Rheumatoid [facility] CHARACTER ARTIST Arthritis V58.69 Medications [facility] (Current) Use Encounter Office Visit 01/29/2013 2:45p [facility] Loy SSherif 332.0 Paralysis [facility] Fuad Connelly Agitans Office Visit 01/07/2013 9:00a Rheumatology Marciano Retana4.0 Rheumatoid [facility] CHARACTER ARTIST Arthritis V58.69 Medications First Line Production Supervisor (Current) Use Encounter Office Visit 10/25/2012 2:20p Rheumatology Jerome Palencia, 714.0 Rheumatoid [facility] M.D. Arthritis V58.69 Medications [facility] (Current) Use Encounter Office Visit 10/22/2012 2:45p [facility] L[facility] Fong 332.0 Paralysis Services Of Marketing Analytics Specialist Fuad Connelly Agitans Office Visit 06/13/2012 8:40a Rheumatology Jerome Palencia 714.0 Rheumatoid Services Of [employer] Specialist M.D. Arthritis V58.69 Medications First Line Production Supervisor (Current) Use Encounter Office Visit 04/23/2012 2:45p [facility] Loy SSherif 332.0 Paralysis [facility] Fuad Connelly Agitans Office Visit 03/14/2012 8:20a Rheumatology Jerome Palencia 714.0 Rheumatoid Services Of [employer] Specialist M.D. Arthritis V58.69 Medications [facility] (Current) Use Encounter 715.94 Osteoarthrosis Unspec Genlzd Or Localized Hand Office Visit 12/11/2011 9:00a Rheumatology Jerome Palencia, 714.0 Rheumatoid [facility] M.D. Arthritis V58.69 Medications First Line Production Supervisor (Current) Use Encounter 715.94 Osteoarthrosis Unspec Genlzd Or Localized Hand Office Visit 11/29/2011 8:00a Orthopedic Services Richard Garcia, 847.2 Sprains & Of C.M.A. M.D. Strains Lumbar 715.96 Osteoarthrosis Unspec Genlzd Or Localized Lower Leg Office Visit 09/25/2011 9:00a Rheumatology Jerome Palencia, 714.0 Rheumatoid [facility] M.D. Arthritis V58.69 Medications First Line Production Supervisor (Current) Use Encounter Office Visit 05/12/2011 10:20a Rheumatology Jerome Palencia, 714.0 Rheumatoid [facility] M.D. Arthritis V58.69 Medications [facility] (Current) Use Encounter Office Visit 04/25/2011 9:20a Rheumatology Jerome Palencia, 714.0 Rheumatoid [facility] M.D. Arthritis 715.94 Osteoarthrosis Unspec Genlzd Or Localized Hand V58.69 Medications First Line Production Supervisor (Current) Use Encounter Office Visit 01/18/2011 3:45p Orthopedic Jackie Cano, 716.[address] [facility]- Unspec Shoulder C.M.A. Region 726.10 Bursae & Tendon Disorders Shoulder Region Unspec Office Visit 01/17/2011 4:00p Rheumatology Jerome Palencia, 714.0 Rheumatoid Services Of Marketing [employer] Specialist M.D. 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 M.D. Disorders Shoulder Region Unspec 716.91 Arthropathy Unspec Shoulder Region 719.41 Pain Joint Shoulder Region Plan of Treatment Future Appointment(s):11/06/2018 1:30 pm - Loy Connelly M.D. at [facility]07/17/2018 - Loy Connelly M.D.G20 Parkinson's diseaseFollow up:4 [id number] Orthostatic [id number] Other extermination supervisor ( current) drug therapy
[2018-08-07 11:44] VITALS: BP 112/51
[2018-08-07] MEDS ORDERED: Tetan/Diph/Pertus SYR(Tdap)* 0.5 ML SYR(BOOSTRIX) use SYR IM ONE (12:13)
--- NOTE | 2018-08-07 12:17 | UC ---
Skin Complaint HPI - HPI Summary HPI Summary: PATIENT WITH HISTORY OF PARKINSON'S DISEASE AND POSTURAL INSTABILITY FELL WHILE GOING TO THE BATHROOM LAST NIGHT. SUSTAINED A SKIN TEAR TO HIS RIGHT ROSE. NOT UP-TO-DATE TETANUS. NO HEAD INJURY OR LOC. - History of Current Complaint Chief Complaint: UCLowerExtremity Time Seen by Provider: 08/07/18 11:59 Stated Complaint: R LEG AND L ARM INJURY Hx Obtained From: Patient, Family/Kit Assembler - TRAFFIC SIGNAL TECHNICIAN/FRIEND Onset/Duration: Sudden Onset, Lasting Hours, Still Present Timing: Constant Onset Severity: Moderate Current Severity: Moderate Pain Intensity: 3 Pain Scale Used: 0-10 Numeric Location: Discrete - RIGHT ROSE Aggravating Factor(s): Nothing Alleviating Factor(s): Nothing Associated Signs & Symptoms: Positive: Drainage. Negative: Fever, Red Streaks - Allergy/Home Medications Allergies/Adverse Reactions: Allergies Allergy/AdvReac Type Severity Reaction Status Date / Time No Known Allergies Allergy Verified 08/07/18 11:38 PMH/Surg Hx/FS Hx/Imm Hx Other Neurological History: PARKINSONS Cancer History: Prostate Cancer - Surgical History Surgical History: Yes Surgery Procedure, Year, and Place: BILAT KNEE REPLACEMENT , appendectomy, hernia repairs, cataract removal right hip fx - Family History Known Family History: Positive: Unknown - Social History Alcohol Use: None Substance Use Type: None Smoking Status (MU): Former Smoker Type: Cigarettes Amount Used/How Often: one pack per week Length of Time of Smoking/Using Tobacco: 10 years Have You Smoked in the Last Year: No When Did the Patient Quit Smoking/Using Tobacco: 65 years ago - Immunization History Most Recent Influenza Vaccination: 02/2015 Most Recent Tetanus Shot: 2013 Most Recent Pneumonia Vaccination: 2013 Review of Systems All Other Systems Reviewed And Are Negative: Yes Constitutional: Positive: Negative Skin: Positive: Other - SKIN TEAR RIGHT ROSE Respiratory: Positive: Negative Cardiovascular: Positive: Negative Gastrointestinal: Positive: Negative Physical Exam Triage Information Reviewed: Yes Appearance: Well-Appearing, No Pain Distress, Well-Nourished Vital Signs: Initial Vital Signs Temp 98.2 F 08/07/18 11:31 Pulse 73 08/07/18 11:31 Resp 17 08/07/18 11:31 BP 112/51 08/07/18 11:31 Pulse Ox 99 08/07/18 11:31 Vital Signs Reviewed: Yes Eyes: Positive: Conjunctiva Clear ENT: Positive: Hearing grossly normal Neck: Positive: Supple Respiratory: Positive: No respiratory distress, No accessory muscle use Cardiovascular: Positive: Pulses Normal Abdomen Description: Positive: Soft Musculoskeletal: Positive: Edema @ - TRACE ANKLE EDEMA Neurological: Positive: Alert Psychological: Positive: Age Appropriate Behavior Skin: Positive: Other - 7CM X 4 CM SKIN TEAR RIGHT ROSE. NO SURROUNDING ERYTHEMA. SLIGHT SEROUS DRAINAGE. HEALING SKIN TEAR LEFT FOREARM 2.5CM Course/Dx - Course Course Of Treatment: WOUND CLEANED AND DEBRIDED BY RN. BANDAGE APPLIED. PT AND CAREGIVER INSTRUCTED ON DAILY DRESSING CHANGES. CALL WOUND CARE TODAY TO SET UP A FOLLOW-UP APPT. - Diagnoses Provider Diagnosis: Skin tear of right lower leg without complication Discharge - Sign-Out/Discharge Documenting (check all that apply): Patient Departure All imaging exams completed and their final reports reviewed: No Studies - Discharge Plan Condition: Stable Disposition: HOME Patient Education Materials: Skin Tear (ED) Referrals: [facility],Brian Cannon [Primary Care Provider] - If Needed Additional Instructions: YOUR WOUND HAS BEEN CLEANED AND DRESSED TODAY. CHANGE THE DRESSING DAILY ADVISED. CALL THE WOUND CARE CLINIC TODAY TO SCHEDULE AN APPT FOR THIS WEEK OR EARLY NEXT WEEK. IT IS NOT CURRENTLY INFECTED. NO ANTIBIOTICS TODAY. SEEK FOLLOW-UP IF YOU DEVELOP SPREADING REDNESS OF THE SKIN, PURULENT DRAINAGE, FEVER, INCREASED PAIN OR ANY OTHER CONCERNING SYMPTOMS. [facility] [place] [facility] [phone] TETANUS IMMUNIZATION GIVEN (TDAP): You have been given an immunization against tetanus. Please record this in your records. In general, a booster is needed only once every 10 years. The tetanus shot protects against tetanus or "lockjaw," which is a complication of certain wound infections (the tetanus shot cannot protect against the actual infection). The immunization site may become warm and red due to local reaction. If this occurs, apply warm compresses and take aspirin or ibuprofen to reduce inflammation and discomfort. Return for evaluation if the reaction becomes severe. - Billing Disposition and Condition Condition: STABLE Disposition: Home
== END 2018-08-07 12:53 | disposition home or self-care (01) ==
LOC: UCEAST 11:26
DX: S81.811A Laceration without foreign body, right lower leg, initial encounter (principal); G20 Parkinson's disease; Z87.891 Personal history of nicotine dependence; X58.XXXA Exposure to other specified factors, initial encounter; Y92.9 Unspecified place or not applicable
CPT/HCPCS: 90715; 99212; G0463